=== PATIENT | female | born 1945 | race African-American/Black ===

== ENCOUNTER 2018-07-13 08:00 | Inpatient (IN) | payer OTHER ==
[2018-07-03 12:38] VITALS: BMI 27.6
--- NOTE | 2018-07-12 12:50 | HP ---
Admitting History and Physical - Admission Chief Complaint: right knee osteoarthritis x years History of Present Illness: 73 year old female presents today in regard to her right knee. Longstanding history of left knee osteoarthritis. Patient complains of pain, limited ROM, difficulty ambulating and difficulty completing activities of daily living. Patient has failed conservative treatment measures including PO medications, injections, activity modification and exercise program. At this point, patient would like to proceed with surgical intervention - right total knee arthroplasty , MAKOplasty. History Source: Patient - Past Medical History Musculoskeletal: Yes: Osteoarthritis - Past Surgical History Additional Past Surgical History: See written history and physical. - Smoking History Smoking history: Never smoked - Alcohol/Substance Use Hx Alcohol Use: No Home Medications - Allergies Allergies/Adverse Reactions: Allergies Allergy/AdvReac Type Severity Reaction Status Date / Time shellfish derived Allergy Verified 06/30/18 14:35 - Home Medications Home Medications: Ambulatory Orders Ascorbate Calcium [Vitamin C] 500 mg PO DAILY 06/30/18 Atenolol/Chlorthalidone [Atenolol-Chlorthalidone 50-25] 1 each PO DAILY Cholecalciferol (Vitamin D3) [Vitamin D3] 1,000 unit PO DAILY 06/30/18 Escitalopram Oxalate [Lexapro -] 10 mg PO DAILY 06/30/18 Gabapentin 300 mg PO HS 06/30/18 Meloxicam 15 mg PO DAILY 06/30/18 Vitamin B Complex 1 each PO DAILY 06/30/18 Review of Systems - Review of Systems Musculoskeletal: reports: Crepitus (right knee), Decreased ROM (right knee), Joint Pain (right knee), Joint Swelling (right knee) Physical Examination Constitutional: Yes: Well Nourished, No Distress Eyes: Yes: Conjunctiva Clear HENT: Yes: Atraumatic, Normocephalic Neck: Yes: Supple Cardiovascular: Yes: Regular Rate and Rhythm Respiratory: Yes: Regular Gastrointestinal: Yes: Soft ...Rectal Exam: Yes: Deferred Musculoskeletal: Yes: Joint Stiffness (right knee), Joint Swelling (right knee) Assessment/Plan 73 year old female presents today in regard to her right knee. Longstanding history of left knee osteoarthritis. Patient complains of pain, limited ROM, difficulty ambulating and difficulty completing activities of daily living. Patient has failed conservative treatment measures including PO medications, injections, activity modification and exercise program. At this point, patient would like to proceed with surgical intervention - right total knee arthroplasty , MAKOplasty. Pros, cons, risks, benefits and alternatives of a right total knee arthroplasty, MAKOplasty - were discussed with the patient at length. Patient confirms her understanding and consents to proceed with a right total knee arthroplasty, MAKOplasty.
[2018-07-13] MEDS ORDERED: GABAPENTIN 300 MG CAPSULE (FP) PO ONE (08:45)
[2018-07-13] MEDS ORDERED: TRANEXAMIC ACID 1000 MG/10 ML VIAL IVPUSH ONE (08:45)
[2018-07-13] MEDS ORDERED: CEFAZOLIN 2 GM in DEXTROSE 5%-WATER - 50 ML IVPB ONE (08:45)
[2018-07-13] MEDS ORDERED: oxyCODONE HCL 10 MG SUSTAINED ACTING TABLET PO ONE (08:45)
[2018-07-13] MEDS ORDERED: CELECOXIB 200 MG CAPSULE PO ONE (08:45)
[2018-07-13] MEDS ORDERED: PANTOPRAZOLE 40 MG TABLET (FP) PO ONE (08:46)
[2018-07-13] MEDS ORDERED: MIDAZOLAM HCL 2 MG/2 ML SINGLE DOSE VIAL ONE ×2 (11:44→13:12)
[2018-07-13] MEDS ORDERED: BUPIVACAINE LIPOSOME/PF (EXPAREL) 266 MG/20 ML VIAL ONE (11:44)
[2018-07-13] MEDS ORDERED: SODIUM CHLORIDE 0.9% P/F 10 ML VIAL IJ ONE (11:44)
[2018-07-13] MEDS ORDERED: TRANEXAMIC ACID 1000 MG/10 ML VIAL ONE ×2 (11:49→13:08)
[2018-07-13] MEDS ORDERED: VANCOMYCIN 1,000 MG VIAL (RESTRICTED TO ID ONLY) ONE (11:49)
[2018-07-13] MEDS ORDERED: ceFAZolin SODIUM 1 GM VIAL ONE ×2 (11:49→13:08)
[2018-07-13] MEDS ORDERED: ePHEDrine SULFATE 50 MG/1 ML AMPULE ONE (12:52)
[2018-07-13] MEDS ORDERED: SUCCINYLCHOLINE CHLORIDE 200 MG/10 ML VIAL ONE (12:53)
[2018-07-13] MEDS ORDERED: PHENYLEPHRINE HCL 10 MG/1 ML SINGLE DOSE VIAL ONE (12:56)
[2018-07-13] MEDS ORDERED: ONDANSETRON 4 MG/2 ML VIAL ONE (13:08)
[2018-07-13] MEDS ORDERED: DEXAMETHASONE SOD PHOSPHATE 4 MG/1 ML VIAL ONE (13:08)
[2018-07-13] MEDS ORDERED: ACETAMINOPHEN INJECTION 100 ML IVPB ONE (16:03)
[2018-07-13] MEDS ORDERED: KETOROLAC TROMETHAMINE 30 MG/1 ML VIAL ONE (16:03)
[2018-07-13] MEDS ORDERED: traMADol HCL 50 MG TABLET ONE (16:03)
[2018-07-13] MEDS ORDERED: ONDANSETRON 4 MG/2 ML VIAL IVPUSH PRN ×2 (16:15→16:28)
[2018-07-13] MEDS ORDERED: PROMETHAZINE HCL 25 MG/1 ML VIAL IVPUSH PRN (16:15)
[2018-07-13] MEDS ORDERED: oxyCODONE HCL 5 MG TABLET PO PRN (16:15)
--- NOTE | 2018-07-13 16:26 | OP ---
Operative Note - Note: Operative Date: 07/13/18 Pre-Operative Diagnosis: right knee OA Surgeon: Cosmo Hopson Waste Collection Driver: Sally Farmer Anesthesia: Spinal Estimated Blood Loss (mls): 100
[2018-07-13] MEDS ORDERED: MAGNESIUM HYDROX 2400MG/30ML ORAL SUSPENSION 30 ML CUP PO PRN (16:28)
[2018-07-13] MEDS ORDERED: MAG HYDROX/AL HYDROX/SIMETH 30 ML UNIT-DOSE CUP PO PRN (16:28)
[2018-07-13] MEDS ORDERED: LACTATED RINGERS SOLUTION 1,000 ML IV SCH (16:30)
[2018-07-13] MEDS ORDERED: ACETAMINOPHEN 1000 MG/100 ML VIAL (NON FORMULARY) IVPB ONE (16:31)
[2018-07-13] MEDS ORDERED: traMADol HCL 50 MG TABLET PO SCH (16:45)
[2018-07-13] MEDS ORDERED: KETOROLAC TROMETHAMINE 30 MG/1 ML VIAL IVPUSH SCH (16:45)
[2018-07-13] MEDS: oxyCODONE HCL 5 MG TABLET PO PRN (17:35)
--- NOTE | 2018-07-13 18:30 | OP ---
DATE OF OPERATION: 07/13/2018 PREOPERATIVE DIAGNOSIS: Right knee osteoarthritis. POSTOPERATIVE DIAGNOSIS: Right knee osteoarthritis. PROCEDURE: Right total knee replacement with Makoplasty robotic navigation. ATTENDING: Jeffery Recio M.D. ADVERTISING CAMPAIGN MANAGER: Dottie Cesar ANESTHESIA: Spinal plus sedation. ESTIMATED BLOOD LOSS: 100 mL. COMPLICATIONS: None. DISPOSITION: The patient was transferred to the PACU in stable condition. IMPLANTS USED: Marydel Triathlon size 3 femoral component and size 2 tibial component, 19-mm total stabilized polyethylene component, 29-mm patellar component. INDICATION: This is a 73-year-old female who presents to the office complaining of severe right knee pain. She was seen and examined by Dr. Recio with diagnosis of severe right knee osteoarthritis. She had a very significant valgus deformity which affected her ambulation and gait patterns and also caused multiple other joint complaints such as in her ankles. Because of the severity of her arthritis and the poor results from conservative management, she was indicated for right total knee replacement. The risks, benefits, and alternatives to this procedure were explained to the patient in great detail, and she elected to proceed with surgery. DESCRIPTION OF PROCEDURE: On the day of surgery, the patient was taken to the operating room and placed on the OR table. Spinal anesthesia was administered by the anesthesiologist. The patient was then positioned supine on the table and all bony prominences were padded. The knee was then prepped and draped in the usual sterile fashion and intravenous antibiotics were given for infection prophylaxis. A surgical time-out was then performed with the team, and the patients identity, procedure, side, availability of implants, and the administration of antibiotics was confirmed. With the knee flexed, a midline incision was made and carried down through the subcutaneous fat to the underlying retinaculum. A medial parapatellar arthrotomy was performed. This was followed by a subperiosteal dissection of the tissue off the proximal, medial tibia. A portion of fat pad was removed from under the patellar tendon, and a small portion of fat was excised off the distal supracondylar femur. Electrocautery and an [employer] bipolar sealing device were used to achieve hemostasis. The knee was then flexed further and the anterior horn of the lateral meniscus was released from the midline. Next, the anterior and posterior cruciate ligaments were transected. Grade 4 changes were noted diffusely throughout the knee. Femoral and tibial checkpoints were then placed in the appropriate location using a mallet. Two parallel bicortical self-drilling pins were placed in the tibial diaphysis after making stab incisions and bluntly dissecting down to bone. Two pins were then placed in the distal supracondylar femur. The neoSurgical navigation arrays were then attached to both the femoral and tibial pins and the lower extremity was then registered to the robotic navigation device using various joint movements, as well as inputting several dozen reference points. The knee was then taken through a full range of motion with a corrective force applied. Alignment in varus/valgus as well as flexion/extension and soft tissue balance was measured in various positions. The navigation device showed a numerical and graphic representation of the soft tissue balance. The components were repositioned virtually using the software until optimal soft tissue balance was achieved on screen. Once this was accomplished, the final plan was saved and sent to the robot. Self-retaining retractors were then placed at the joint line for exposure and protection of the collateral ligaments. The robot was brought into the sterile field and registered with the navigation device. The robotic arm with attached oscillating saw blade was then used to perform femoral and tibial bone cuts as per the saved software plan. The femoral box cut was made using the appropriately sized manual cutting guide. The knee was then irrigated. Trial components were placed and the knee was taken through a full range of motion to assess soft tissue balance and alignment. The range of motion was found to be excellent and the soft tissue balance was optimal and according to plan. The knee was then put into extension and the patella everted. The synovium around the patella was circumscribed with electrocautery. A caliper was used to measure the patellar thickness and a saw was then used to resect the patella at the chondro-osseous junction. The cut surface was then sized and drilled for the appropriate patellar button, with care taken to medialize it. A trial patella was then placed and the knee was again taken through a full range of motion. The knee was found to have both good balance and good patellar tracking. All of the components were removed except the tibial base plate. The appropriate instrumentation was used to drill and punch the proximal tibia for the keel of the final component. All bony surfaces were then cleaned with pulsatile lavage and dried. Bone cement was then prepared on the back table, and final components were cemented in place in the usual fashion. Extruded cement was removed. The polyethylene trial was placed, the knee was put into extension, and axial pressure was applied for compression while the cement hardened. The patellar button was similarly cemented into place. Once the cement had hardened, the knee was taken through a full range of motion to assess stability, balance, and patellar tracking. This was found to be optimal and the trial polyethylene was exchanged for the appropriately sized real implant. The wound was then thoroughly irrigated with normal saline. A 3-minute dilute Betadine lavage was performed. The knee was again irrigated using a pulsatile lavage device. A periarticular injection was used to locally infiltrate the capsular tissues surrounding the implant and prosthesis. Then No. 1 Polysorb and 0 VLoc 180 barbed sutures were used to close the arthrotomy. Then No. 1 Polysorb and 2-0 VLoc 90 sutures were used in the subcutaneous tissues. Then 4-0 undyed Vicryl and Dermabond skin adhesive was used to close the stab incisions made for the navigation pins. The skin was closed using both 3-0 VLoc 90 suture in a running subcuticular fashion and Dermabond skin adhesive. Once this was completed a sterile Aquacel dressing and compressive Mickey-wrap was applied. The patient was then awakened and taken to the PACU in stable condition. JEFFERY RECIO M.D. VENTURA/[id number]
[2018-07-13] MEDS: CEFAZOLIN 2 GM/D5W 2 GM/50 ML ML IVPB SCH (20:00)
[2018-07-13] MEDS: oxyCODONE HCL 10 MG SUSTAINED ACTING TABLET PO SCH (21:36)
[2018-07-13] MEDS: SENNOSIDES/DOCUSATE COMBO (SENNA PLUS) TABLET (UD) PO SCH (21:37)
[2018-07-13] MEDS: GABAPENTIN 300 MG CAPSULE (FP) PO SCH (21:37)
[2018-07-13] MEDS: ACETAMINOPHEN 325 MG TABLET (FP) PO SCH (21:37)
[2018-07-13] MEDS: CELECOXIB 200 MG CAPSULE PO SCH (21:37)
[2018-07-13] MEDS: traMADol HCL 50 MG TABLET PO SCH (21:38)
[2018-07-13] MEDS: ASCORBIC ACID 500 MG TABLET (FP) PO SCH (21:39)
[2018-07-13] MEDS: KETOROLAC TROMETHAMINE 15 MG/ML VIAL IVPUSH SCH (21:58)
[2018-07-14] MEDS ORDERED: DEXAMETHASONE SOD PHOSPHATE 10 MG/1 ML VIAL IVPB ONE
[2018-07-14] MEDS: CEFAZOLIN 2 GM/D5W 2 GM/50 ML ML IVPB SCH (01:44)
[2018-07-14] MEDS: traMADol HCL 50 MG TABLET PO SCH ×4 (04:36→21:40)
[2018-07-14] MEDS: ACETAMINOPHEN 325 MG TABLET (FP) PO SCH ×4 (04:36→21:39)
[2018-07-14] MEDS: KETOROLAC TROMETHAMINE 15 MG/ML VIAL IVPUSH SCH ×2 (04:38→10:37)
[2018-07-14] MEDS: ASPIRIN 325 MG TABLET PO SCH (08:00)
[2018-07-14 08:04] LABS: CALCIUM 8.8 mg/dl (8.5-10); POTASSIUM 3.5 mmol/L (3.5-5.1)
[2018-07-14 08:09] LABS: HEMATOCRIT 28.2 % (32.4-45.2); HEMOGLOBIN 9.4 GM/dl (10.7-15.3); MCH 28.7 pg (25.7-33.7); MCHC 33.3 g/dl (32.0-36.0); MEAN CELL VOLUME 86.1 fl (80-96); PLATELET COUNT 211 K/MM3 (134-434); RBC 3.28 M/mm3 (3.60-5.2); RDW 13.1 % (11.6-15.6); WHITE BLOOD COUNT 5.5 K/mm3 (4.0-10.8)
[2018-07-14] MEDS ORDERED: PATIENT'S OWN MEDICATION (NON-FORMULARY) (Atenolol/Chlorthalidone [Atenolol-Chlorthalidone PO SCH (10:00)
[2018-07-14] MEDS: ASCORBIC ACID 500 MG TABLET (FP) PO SCH ×2 (10:18→21:41)
[2018-07-14] MEDS: MULTIVITAMINS (DAILY MVI) TABLET (FP) PO SCH (10:18)
[2018-07-14] MEDS: CELECOXIB 200 MG CAPSULE PO SCH ×2 (10:18→21:40)
[2018-07-14] MEDS: SENNOSIDES/DOCUSATE COMBO (SENNA PLUS) TABLET (UD) PO SCH ×2 (10:18→21:41)
[2018-07-14] MEDS: ATENOLOL 50 MG TABLET (FP) PO SCH (10:18)
[2018-07-14] MEDS: GABAPENTIN 300 MG CAPSULE (FP) PO SCH ×2 (10:20→21:40)
[2018-07-14] MEDS: PANTOPRAZOLE 40 MG TABLET (FP) PO SCH (10:20)
[2018-07-14] MEDS: ESCITALOPRAM OXALATE 10 MG TABLET (FP) PO SCH ×2 (10:20→10:37)
[2018-07-14] MEDS: CHLORTHALIDONE 25 MG TABLET PO SCH (10:23)
[2018-07-14] MEDS: oxyCODONE HCL 10 MG SUSTAINED ACTING TABLET PO SCH ×2 (10:37→21:40)
--- NOTE | 2018-07-14 11:35 | SURG ---
Surgery Director Of Restaurant Note Director Of Restaurant: Sally Farmer PA-C (Suzy) Date of Service: 07/13/18 Diagnosis: Right knee osteoarthritis Procedure: Right knee replacement ([facility]) I was present for the entirety of the operative procedure. For further detail, please refer to operative report. Visit type - Case Type Case Type: Scheduled - Emergency Emergency Visit: No - New patient This patient is new to me today: Yes Date on this admission: 07/14/18 - Critical Care Critical Care patient: No
[2018-07-14] MEDS ORDERED: ESCITALOPRAM OXALATE 10 MG TABLET (FP) PO SCH (22:00)
[2018-07-15] MEDS: ACETAMINOPHEN 325 MG TABLET (FP) PO SCH ×3 (06:01→09:59)
[2018-07-15] MEDS: traMADol HCL 50 MG TABLET PO SCH ×2 (06:01→10:00)
[2018-07-15] MEDS: oxyCODONE HCL 5 MG TABLET PO PRN (06:33)
[2018-07-15 08:38] LABS: HEMATOCRIT 28.8 % (32.4-45.2); HEMOGLOBIN 9.1 GM/dl (10.7-15.3); MCH 27.4 pg (25.7-33.7); MCHC 31.6 g/dl (32.0-36.0); MEAN CELL VOLUME 86.7 fl (80-96); MEAN PLT VOLUME 8.9 fl (7.5-11.1); PLATELET COUNT 217 K/MM3 (134-434); RBC 3.32 M/mm3 (3.60-5.2); RDW 13.6 % (11.6-15.6); WHITE BLOOD COUNT 6.8 K/mm3 (4.0-10.8)
[2018-07-15] MEDS: ASPIRIN 325 MG TABLET PO SCH (09:01)
[2018-07-15] MEDS: CELECOXIB 200 MG CAPSULE PO SCH (10:02)
[2018-07-15] MEDS: GABAPENTIN 300 MG CAPSULE (FP) PO SCH (10:03)
[2018-07-15] MEDS: SENNOSIDES/DOCUSATE COMBO (SENNA PLUS) TABLET (UD) PO SCH (10:04)
[2018-07-15] MEDS: oxyCODONE HCL 10 MG SUSTAINED ACTING TABLET PO SCH (10:04)
[2018-07-15] MEDS: CHLORTHALIDONE 25 MG TABLET PO SCH (10:04)
[2018-07-15] MEDS: ATENOLOL 50 MG TABLET (FP) PO SCH (10:05)
[2018-07-15] MEDS: MULTIVITAMINS (DAILY MVI) TABLET (FP) PO SCH (10:05)
[2018-07-15] MEDS: PANTOPRAZOLE 40 MG TABLET (FP) PO SCH (10:05)
[2018-07-15] MEDS: ASCORBIC ACID 500 MG TABLET (FP) PO SCH (10:05)
--- NOTE | 2018-07-15 10:15 | DS ---
Physical Examination Vital Signs: Vital Signs Temperature 97.8 F 07/15/18 07:00 Pulse Rate 50 L 07/15/18 07:00 Respiratory Rate 18 07/15/18 07:00 Blood Pressure 117/55 L 07/15/18 07:00 O2 Sat by Pulse Oximetry (%) 93 L 07/15/18 07:00 Labs: CBC, BMP 07/15/18 07:30 07/14/18 07:26 Discharge Summary Reason For Visit: RIGHT KNEE OSTEOARTHRITIS Current Active Problems Osteoarthritis of right knee (Acute) Procedures: Principal: Right TKA Hospital Course: Admitted for elective surgery. Procedure performed without complications. Pt received postoperative antibiotic prophylaxis and DVT ppx. Ambulated with physical therapy. Stable for discharge home with outpatient followup. Condition: Stable - Instructions Diet, Activity, Other Instructions: Dr. Hopson - Knee Replacement Instructions Keep the Aquacel dressing on until removed by Dr. Hopson in 10-14 days - it is antibacterial and waterproof and you can shower with it on. Call the office for a follow-up appointment with Dr. Hopson in 10-14 days. [phone] Take one Aspirin 325mg daily for 6 weeks to prevent blood clots in your legs. Take one Pantoprazole 40mg daily for 6 weeks to protect against heartburn and ulcers. Take Cephalexin (antibiotic) 3x/day for 10 days to help prevent skin infection. Take Celebrex 200mg daily for 30 days to reduce swelling and inflammation. Take a multivitamin, stool softener, and extra Vitamin C supplement daily. For pain: *Mild pain (1-3/10): Take 1 Tramadol tablet every 4 hours as needed. Moderate pain (4-6/10): Take 1 Tramadol tablet and 1 Percocet tablet every 4 hours as needed. Severe pain (7-10/10): Take 1 Tramadol tablet and 2 Percocet tablets every 4 hours as needed. Activity: You can put as much weight on the operative leg as you want. Always use a walker or cane for balance and to prevent falls. Expect to see swelling/bruising from the operative site all the way down to your toes. Wear the compression stocking on the operative side during the day to minimize how much swelling there is in your foot/ankle. Don't wear the stocking at night. You don't have to wear a stocking on the other side. Disposition: [facility] - Home Medications Comprehensive Discharge Medication List: Ambulatory Orders Atenolol/Chlorthalidone [Atenolol-Chlorthalidone 50-25] 1 each PO DAILY Cholecalciferol (Vitamin D3) [Vitamin D3] 1,000 unit PO DAILY 06/30/18 Escitalopram Oxalate [Lexapro -] 10 mg PO DAILY 06/30/18 Gabapentin 300 mg PO HS 06/30/18 Vitamin B Complex 1 each PO DAILY 06/30/18 Ascorbic Acid [Vitamin C -] 500 mg PO BID tablet 07/15/18 Aspirin [ASA -] 325 mg PO DAILY@0800 tablet 07/15/18 Celecoxib [CeleBREX -] 200 mg PO DAILY #30 capsule 07/15/18 Cephalexin Monohydrate [Keflex -] 500 mg PO TID #30 capsule 07/15/18 Multivitamins [Multivit ([facility] Formulary)] 1 tab PO DAILY tab 07/15/18 Oxycodone HCl/Acetaminophen [Percocet 5-325 mg Tablet] 1 - 2 tab PO Q4H PRN #60 tablet MDD 10 07/15/18 Pantoprazole Sodium [Protonix -] 40 mg PO DAILY #40 tablet.ec 07/15/18 Sennosides/Docusate Sodium [Pericolace -] 2 tablet PO BID tablet 07/15/18 traMADol HCL [Ultram -] 50 mg PO Q4H PRN #42 tablet MDD 6 07/15/18
[2018-07-15 10:16] VITALS: BP 116/59; PULSE 62; TEMP 98
--- NOTE | 2018-07-19 13:58 | PATH ---
Surgical Pathology Report Patient Name: NADYA SALINAS Med. Rec. #: [id number] /Age/Gender: 1945 (Age: 73) / F Account: [id number] Location: [facility] MED-SURG Taken: 07/13/2018 Received: 07/13/2018 Reported: 07/19/2018 Physicians: Cosmo Hopson M.D. Specimen(s) Received RIGHT KNEE BONES Clinical History Right knee osteoarthritis Final Diagnosis KNEE BONES, RIGHT, TOTAL KNEE REPLACEMENT: DEGENERATIVE JOINT DISEASE. Electronically Signed Brittany Hess M.D. Gross Description Received in formalin labeled "right knee bones" is a 9 x 10 x 4 cm aggregate of multiple portions of bone and soft tissue. The tibial plateau measures 7 x 6 x 2.5 cm. There are focal areas of eburnation identified. The articular surface the is gallardo-yellow and diffusely granular. The underlying trabecular bone is yellow and hard. Scrap Breaker sections submitted in one cassette, following decalcification. ORTIZ/07/14/2018 felipe/07/14/2018
== END 2018-07-15 11:55 | DRG 470 ==
LOC: FM/S 09:20
PROVIDERS: ADMIT Student in an Organized Health Care Education/Training Program; ATTEND Student in an Organized Health Care Education/Training Program
PROC: 8E0Y0CZ Robotic Assisted Procedure of Lower Extremity, Open Approach (ICD-10-PCS; 2018-07-13)
PROC: 0SRC0J9 Replacement of Right Knee Joint with Synthetic Substitute, Cemented, Open Approach (ICD-10-PCS; principal; 2018-07-13 13:20)
DX: M17.11 Unilateral primary osteoarthritis, right knee (principal)
CPT/HCPCS: 36415; 73560-TC-RT-FY; 80048; 85027; 88304-TC; 88311-TC; 94760; 97116-GP; 97163-GP; J0131; J1100

== ENCOUNTER 2018-08-13 16:30 | Inpatient (IN) | payer OTHER ==
[2018-08-13 16:54] VITALS: BMI 29.2
--- NOTE | 2018-08-13 16:54 | PDOC ---
History of Present Illness - General Chief Complaint: Wound Stated Complaint: WOUND TO RIGHT KNEE SURGICAL SITE Time Seen by Provider: 08/13/18 16:38 - History of Present Illness Initial Comments: 08/13/18 17:26 73-year-old female with a history of hypertension, recent right total knee replacement on July 13, [address] Wilburn presents to the emergency department as a transfer from [place] emergency department for wound dehiscence. Patient reports accidentally twisting her knee 3 days ago while at physical therapy. This morning, as she got out of bed, she felt sudden pain in her R knee. When she looked down, she noticed the wound had opened and blood was coming out. She called 911 and was taken to [place] because it's closer to her home. At [place], she was given PO Clindamycin and the wound was washed out and packed with Betadine. Upon arrival to our emergency department the patient denies any other symptoms of fevers, chills, chest pain, shortness of breath, abdominal pain, nausea, vomiting, diarrhea, headache, dizziness, focal weakness or numbness. Per Dr. Hopson, he will take pt to the OR in the morning for a washout. Past History - Past Medical History Allergies/Adverse Reactions: Allergies Allergy/AdvReac Type Severity Reaction Status Date / Time cephalexin [From Keflex] Allergy Intermediate Rash Verified 08/13/18 17:24 shellfish derived Allergy Verified 08/13/18 16:49 No Known Drug Allergies AdvReac Unknown Verified 08/13/18 16:49 Home Medications: Ambulatory Orders Atenolol/Chlorthalidone [Atenolol-Chlorthalidone 50-25] 1 each PO DAILY Cholecalciferol (Vitamin D3) [Vitamin D3] 1,000 unit PO DAILY 06/30/18 Escitalopram Oxalate [Lexapro -] 10 mg PO DAILY 06/30/18 Vitamin B Complex 1 each PO DAILY 06/30/18 Ascorbic Acid [Vitamin C -] 500 mg PO BID tablet 07/15/18 Aspirin [ASA -] 325 mg PO DAILY@0800 tablet 07/15/18 Celecoxib [CeleBREX -] 200 mg PO DAILY #30 capsule 07/15/18 Oxycodone HCl/Acetaminophen [Percocet 5-325 mg Tablet] 1 - 2 tab PO Q4H PRN #60 tablet MDD 10 07/15/18 Pantoprazole Sodium [Protonix -] 40 mg PO DAILY #40 tablet.ec 07/15/18 Sennosides/Docusate Sodium [Pericolace -] 2 tablet PO BID tablet 07/15/18 traMADol HCL [Ultram -] 50 mg PO Q4H PRN #42 tablet MDD 6 07/15/18 Clindamycin [Cleocin -] 2 cap PO ONCE 08/13/18 Anemia: No Asthma: No Cancer: No Cardiac Disorders: No CVA: No COPD: No CHF: No Dementia: No Diabetes: No GI Disorders: No Disorders: No HTN: Yes Hypercholesterolemia: No Liver Disease: No Seizures: No Thyroid Disease: No - Surgical History Abdominal Surgery: No Appendectomy: No Cardiac Surgery: No Cholecystectomy: No Lung Surgery: No Neurologic Surgery: No Orthopedic Surgery: Yes (Bilateral Bunionectomy) - Suicide/Smoking/Psychosocial Hx Smoking History: Never smoked Hx Alcohol Use: No Drug/Substance Use Hx: No Substance Use Type: None Hx Substance Use Treatment: No Review of Systems - Review of Systems Comments:: 08/13/18 17:29 GENERAL/CONSTITUTIONAL: No fever or chills. No weakness. HEAD, EYES, EARS, NOSE AND THROAT: No change in vision. No ear pain or discharge. No sore throat. GASTROINTESTINAL: No nausea, vomiting, diarrhea or constipation. GENITOURINARY: No dysuria, frequency, or change in urination. CARDIOVASCULAR: No chest pain or shortness of breath. RESPIRATORY: No cough, wheezing, or hemoptysis. MUSCULOSKELETAL: No joint or muscle swelling or pain. No neck or back pain. SKIN: +wound dehiscence NEUROLOGIC: No headache, vertigo, loss of consciousness, or change in strength/ sensation. ENDOCRINE: No increased thirst. No abnormal weight change. HEMATOLOGIC/LYMPHATIC: No anemia, easy bleeding, or history of blood clots. ALLERGIC/IMMUNOLOGIC: No hives or skin allergy. *Physical Exam - Vital Signs Last Vital Signs Temp Pulse Resp BP Pulse Ox 98 F 72 18 127/43 L 97 08/13/18 16:35 08/13/18 16:35 08/13/18 16:35 08/13/18 16:35 08/13/18 16:35 - Physical Exam Comments: 08/13/18 17:41 GENERAL: Awake, alert, and fully oriented, in no acute distress. Non toxic HEAD: No signs of trauma EYES: EOMI, sclera anicteric, conjunctiva clear ENT: Oropharynx clear without exudates. Moist mucosa NECK: Normal ROM, supple, no lymphadenopathy, JVD, or masses LUNGS: Breath sounds equal, clear to auscultation bilaterally. No wheezes, and no crackles HEART: Regular rate and rhythm, normal S1 and S2, no murmurs, rubs or gallops ABDOMEN: Soft, nontender, normoactive bowel sounds. No guarding, no rebound. No masses EXTREMITIES: Pt does not want us to take down R knee dressing. Pt has pictures of wound this morning on her phone consistent with wound dehiscence. [facility] NEUROLOGICAL: Normal speech, cranial nerves intact, equal strength and sensation b/l/ SKIN: As noted above ED Treatment Course - LABORATORY CBC & Chemistry Diagram: 08/13/18 17:25 08/13/18 16:54 Medical Decision Making - Medical Decision Making 08/13/18 17:45 73yo F presents to the ED for admission for wound wash out with Dr. Hopson tomorrow in the morning Orders have been placed by Dr. Hopson Pt declines pain medications Labs pending Case discussed with Dr. Patel who will admit pt Case discussed in detail with admitting physician including history, physical exam and ancillary studies. Admitting physician has assumed care for the patient, will follow all pending diagnostics and will complete the evaluation and treatment. *DC/Admit/Observation/Transfer Diagnosis at time of Disposition: Wound dehiscence - Discharge Dispostion Condition at time of disposition: Fair Decision to Admit order Date/Time: Decision to Admit Order Category Date Time Status Decision to Admit to Hospital Routine Admission 08/13/18 16:51 Active - Referrals - Patient Instructions - Post Discharge Activity - Attestations Physician Attestion: 08/13/18 18:28 I, Dr. Mariaelena Box MD, attest that this document has been prepared under my direction and personally reviewed by me in its entirety. I further attest, that it accurately reflects all work, treatment, procedures and medical decision -making performed by me.
[2018-08-13] MEDS ORDERED: CELECOXIB 200 MG CAPSULE PO ONE (17:27)
[2018-08-13] MEDS ORDERED: MAGNESIUM HYDROX 2400MG/30ML ORAL SUSPENSION 30 ML CUP PO PRN (17:29)
[2018-08-13] MEDS ORDERED: ONDANSETRON 4 MG/2 ML VIAL IVPUSH PRN (17:29)
[2018-08-13] MEDS ORDERED: MAG HYDROX/AL HYDROX/SIMETH 30 ML UNIT-DOSE CUP PO PRN (17:29)
[2018-08-13] MEDS ORDERED: LACTATED RINGERS SOLUTION 1,000 ML IV SCH (17:30)
[2018-08-13] MEDS ORDERED: oxyCODONE HCL 5 MG TABLET PO PRN (17:31)
[2018-08-13 18:29] LABS: BASO % 1.3 % (0-2.0); EOS % 13.7 % (0-4.5); HEMATOCRIT 29.7 % (32.4-45.2); HEMOGLOBIN 9.6 GM/dl (10.7-15.3); LYMPH % 28.1 % (8-40); MCH 27.6 pg (25.7-33.7); MCHC 32.4 g/dl (32.0-36.0); MEAN CELL VOLUME 85.3 fl (80-96); MEAN PLT VOLUME 8.4 fl (7.5-11.1); MONO % 11.1 % (3.8-10.2); NEUT % 45.8 % (42.8-82.8); PLATELET COUNT 378 K/MM3 (134-434); RBC 3.48 M/mm3 (3.60-5.2); RDW 14.6 % (11.6-15.6); WHITE BLOOD COUNT 5.3 K/mm3 (4.0-10.8)
[2018-08-13 18:31] LABS: ALBUMIN 3.5 g/dl (3.4-5.0); BILIRUBIN,TOTAL 0.5 mg/dl (0.2-1); CALCIUM 9.4 mg/dl (8.5-10); CREATININE 1.4 mg/dl (0.55-1.3); POTASSIUM 4.3 mmol/L (3.5-5.1); TOT PROT 7.3 g/dl (6.4-8.2)
[2018-08-13] MEDS: traMADol HCL 50 MG TABLET PO SCH (19:24)
[2018-08-13] MEDS: CEFAZOLIN 2 GM/D5W 2 GM/50 ML ML IVPB SCH (19:24)
[2018-08-13] MEDS: ASCORBIC ACID 500 MG TABLET (FP) PO SCH (21:18)
[2018-08-13] MEDS: SENNOSIDES/DOCUSATE COMBO (SENNA PLUS) TABLET (UD) PO SCH (21:18)
[2018-08-13] MEDS: GABAPENTIN 300 MG CAPSULE (FP) PO SCH (21:18)
[2018-08-13] MEDS: oxyCODONE HCL 5 MG TABLET PO PRN (21:24)
[2018-08-14] MEDS: traMADol HCL 50 MG TABLET PO SCH ×3 (00:03→13:16)
[2018-08-14] MEDS: CEFAZOLIN 2 GM/D5W 2 GM/50 ML ML IVPB SCH ×2 (01:12→10:00)
[2018-08-14] MEDS: PANTOPRAZOLE 40 MG TABLET (FP) PO SCH (09:58)
[2018-08-14] MEDS: SENNOSIDES/DOCUSATE COMBO (SENNA PLUS) TABLET (UD) PO SCH ×2 (09:58→22:31)
[2018-08-14] MEDS: GABAPENTIN 300 MG CAPSULE (FP) PO SCH ×2 (09:58→22:33)
[2018-08-14] MEDS: ATENOLOL 50 MG TABLET (FP) PO SCH (09:59)
[2018-08-14] MEDS: MULTIVITAMINS (DAILY MVI) TABLET (FP) PO SCH (09:59)
[2018-08-14] MEDS: ESCITALOPRAM OXALATE 10 MG TABLET (FP) PO SCH (09:59)
[2018-08-14] MEDS: ASCORBIC ACID 500 MG TABLET (FP) PO SCH ×2 (09:59→22:31)
[2018-08-14] MEDS: CHLORTHALIDONE 25 MG TABLET PO SCH (10:00)
[2018-08-14] MEDS ORDERED: PATIENT'S OWN MEDICATION (NON-FORMULARY) (Atenolol/Chlorthalidone [Atenolol-Chlorthalidone PO SCH (10:00)
[2018-08-14] MEDS ORDERED: KETOROLAC TROMETHAMINE 30 MG/1 ML VIAL ONE (14:19)
[2018-08-14] MEDS ORDERED: LIDOCAINE HCL/PF 2% SDV 5ML VIAL ONE (14:19)
[2018-08-14] MEDS ORDERED: ONDANSETRON 4 MG/2 ML VIAL ONE (14:19)
[2018-08-14] MEDS ORDERED: PROPOFOL 20 ML ONE (14:20)
[2018-08-14] MEDS ORDERED: SUCCINYLCHOLINE CHLORIDE 200 MG/10 ML VIAL ONE (14:25)
[2018-08-14] MEDS ORDERED: ceFAZolin SODIUM 1 GM VIAL ONE ×2 (16:15→17:46)
[2018-08-14] MEDS ORDERED: VANCOMYCIN 1,000 MG VIAL (RESTRICTED TO ID ONLY) ONE ×2 (16:15→17:54)
--- NOTE | 2018-08-14 16:42 | HP ---
Admitting History and Physical - Past Medical History ...: No Musculoskeletal: Yes: Osteoarthritis - Smoking History Smoking history: Never smoked Have you smoked in the past 12 months: No - Alcohol/Substance Use Hx Alcohol Use: No Home Medications - Allergies Allergies/Adverse Reactions: Allergies Allergy/AdvReac Type Severity Reaction Status Date / Time shellfish derived Allergy Verified 08/13/18 16:49 No Known Drug Allergies AdvReac Unknown Verified 08/13/18 16:49 Aquacell-AG Dressing Allergy Intermediate Rash Uncoded 08/14/18 08:34 - Home Medications Home Medications: Ambulatory Orders Atenolol/Chlorthalidone [Atenolol-Chlorthalidone 50-25] 1 each PO DAILY Cholecalciferol (Vitamin D3) [Vitamin D3] 1,000 unit PO DAILY 06/30/18 Escitalopram Oxalate [Lexapro -] 10 mg PO DAILY 06/30/18 Vitamin B Complex 1 each PO DAILY 06/30/18 Ascorbic Acid [Vitamin C -] 500 mg PO BID tablet 07/15/18 Aspirin [ASA -] 325 mg PO DAILY@0800 tablet 07/15/18 Celecoxib [CeleBREX -] 200 mg PO DAILY #30 capsule 07/15/18 Oxycodone HCl/Acetaminophen [Percocet 5-325 mg Tablet] 1 - 2 tab PO Q4H PRN #60 tablet MDD 10 07/15/18 Pantoprazole Sodium [Protonix -] 40 mg PO DAILY #40 tablet.ec 07/15/18 Sennosides/Docusate Sodium [Pericolace -] 2 tablet PO BID tablet 07/15/18 traMADol HCL [Ultram -] 50 mg PO Q4H PRN #42 tablet MDD 6 07/15/18 Clindamycin [Cleocin -] 2 cap PO ONCE 08/13/18 Physical Examination Vital Signs: Vital Signs Temperature 98.3 F 08/14/18 13:00 Pulse Rate 52 L 08/14/18 13:00 Respiratory Rate 18 08/14/18 13:00 Blood Pressure 126/50 L 08/14/18 13:00 O2 Sat by Pulse Oximetry (%) 97 08/14/18 13:00 Labs: CBC, BMP 08/13/18 17:55 08/13/18 17:55
[2018-08-14] MEDS ORDERED: MIDAZOLAM HCL 2 MG/2 ML SINGLE DOSE VIAL ONE ×2 (16:46→17:49)
[2018-08-14] MEDS ORDERED: TRANEXAMIC ACID 1000 MG/10 ML VIAL ONE (19:09)
[2018-08-14] MEDS ORDERED: TRANEXAMIC ACID 1000 MG/10 ML VIAL IVPB ONE (19:10)
[2018-08-14] MEDS ORDERED: ACETAMINOPHEN 1000 MG/100 ML VIAL (NON FORMULARY) IVPB ONE (20:09)
[2018-08-14] MEDS ORDERED: LACTATED RINGERS SOLUTION 1,000 ML IV SCH (20:30)
--- NOTE | 2018-08-14 20:44 | OP ---
Operative Note - Note: Operative Date: 08/14/18 Pre-Operative Diagnosis: right TKA wound dehiscence Operation: right TKA irrigation and debridement, polyethylene exchange, arthrotomy and skin closure Findings: see dictation Post-Operative Diagnosis: Other (right TKA deep wound dehiscence / capsular dehiscence) Surgeon: Cosmo Hopson Lacemaker: Hanna Milligan Anesthesia: Spinal Estimated Blood Loss (mls): 150
[2018-08-14] MEDS ORDERED: APIXABAN 2.5 MG TABLET PO SCH (22:00)
[2018-08-14] MEDS: oxyCODONE HCL 10 MG SUSTAINED ACTING TABLET PO SCH (22:32)
[2018-08-15] MEDS: SENNOSIDES/DOCUSATE COMBO (SENNA PLUS) TABLET (UD) PO SCH ×5 (00:21→22:04)
[2018-08-15] MEDS: ASCORBIC ACID 500 MG TABLET (FP) PO SCH ×5 (00:21→22:04)
[2018-08-15] MEDS: CEFAZOLIN 2 GM/D5W 2 GM/50 ML ML IVPB SCH ×3 (01:04→18:22)
[2018-08-15] MEDS: traMADol HCL 50 MG TABLET PO SCH ×4 (01:05→18:15)
[2018-08-15] MEDS: oxyCODONE HCL 5 MG TABLET PO PRN ×4 (04:45→17:23)
[2018-08-15 08:12] LABS: HEMATOCRIT 24.5 % (32.4-45.2); HEMOGLOBIN 7.7 GM/dl (10.7-15.3); MCH 27.1 pg (25.7-33.7); MCHC 31.4 g/dl (32.0-36.0); MEAN CELL VOLUME 86.2 fl (80-96); MEAN PLT VOLUME 8.1 fl (7.5-11.1); PLATELET COUNT 315 K/MM3 (134-434); RBC 2.85 M/mm3 (3.60-5.2); RDW 15.1 % (11.6-15.6)
--- NOTE | 2018-08-15 08:43 | CONSULT ---
Consultation: REQUESTING PROVIDER: Dr. Cosmo Hopson CONSULT REQUEST: We have been asked to medically evaluate this patient during the post-operative period. HISTORY OF PRESENT ILLNESS: 73 year-old female with a [facility] signficant for HTN, SLE-type symptoms, depression/ anxiety, and right knee arthritis s/p WILBUR right knee replacement on 07/13/18. Readmitted on 08/13/18 for deep wound and capsular dehiscence. Taken to OR on for irrigation, debridement, polyethylene exchange, arthrotomy and skin closure. REVIEW OF SYSTEMS: CONSTITUTIONAL: Absent: fever, chills, diaphoresis, generalized weakness, malaise, loss of appetite, weight change HEENT: Absent: rhinorrhea, nasal congestion, throat pain, throat swelling, difficulty swallowing, mouth swelling, ear pain, eye pain, visual changes CARDIOVASCULAR: Absent: chest pain, syncope, palpitations, irregular heart rate, lightheadedness , peripheral edema RESPIRATORY: Absent: cough, shortness of breath, dyspnea with exertion, orthopnea, wheezing, stridor, hemoptysis GASTROINTESTINAL: Absent: abdominal pain, abdominal distension, nausea, vomiting, diarrhea, constipation, melena, hematochezia GENITOURINARY: Absent: dysuria, frequency, urgency, hesitancy, hematuria, flank pain, genital pain MUSCULOSKELETAL: +right knee pain Absent: myalgia, arthralgia, joint swelling, back pain, neck pain SKIN: Absent: rash, itching, pallor HEMATOLOGIC/IMMUNOLOGIC: Absent: easy bleeding, easy bruising, lymphadenopathy, frequent infections ENDOCRINE: Absent: unexplained weight gain, unexplained weight loss, heat intolerance, cold intolerance NEUROLOGIC: Absent: headache, focal weakness or paresthesias, dizziness, unsteady gait, seizure, mental status changes, bladder or bowel incontinence PSYCHIATRIC: Absent: anxiety, depression, suicidal or homicidal ideation, hallucinations. PHYSICAL EXAMINATION Vital Signs - 24 hr 08/15/18 08/15/18 08/15/18 01:00 01:16 05:00 Temperature 97.6 F 98.5 F Pulse Rate 62 63 Respiratory 19 20 Rate Blood Pressure 128/46 L 120/49 L O2 Sat by Pulse 100 Oximetry (%) 08/15/18 06:48 Temperature Pulse Rate Respiratory Rate Blood Pressure O2 Sat by Pulse 100 Oximetry (%) GENERAL: Awake, alert, and fully oriented, in no acute distress. LUNGS: Breath sounds equal, clear to auscultation bilaterally. No wheezes, and no crackles. No accessory muscle use. HEART: Regular rate and rhythm, normal S1 and S2 ABDOMEN: Soft, nontender, not distended MUSCULOSKELETAL: Normal range of motion at all joints. No bony deformities or tenderness. No CVA tenderness. UPPER EXTREMITIES: 2+ pulses, warm, well-perfused. No cyanosis. No clubbing. Cap refill <2 seconds. No peripheral edema. RIGHT LOWER EXTREMITY: 2+ DP pulse, foot is warm, sensory intact, leg immobilizer in place, dressings c/d/i, wound not visualized NEUROLOGICAL: Cranial nerves II-XII intact. Normal speech. Laboratory Results - last 24 hr 08/15/18 07:29 WBC 5.0 RBC 2.85 L Hgb 7.7 L Hct 24.5 L D MCV 86.2 MCH 27.1 MCHC 31.4 L RDW 15.1 Plt Count 315 MPV 8.1 Active Medications Generic Name Dose Route Start Last Admin Trade Name Freq PRN Reason Stop Dose Admin Al Hydroxide/Mg Hydroxide 30 ml 08/13/18 17:29 Mylanta Oral Suspension - PO Q4H PRN DYSPEPSIA Apixaban 2.5 mg 08/15/18 10:00 Eliquis - PO BID VLADIMIR Ascorbic Acid 500 mg 08/13/18 22:00 08/14/18 22:31 Vitamin C - PO 500 mg BID VLADIMIR Administration Ascorbic Acid 500 mg 08/14/18 22:00 08/15/18 00:21 Vitamin C - PO Not Given BID VLADIMIR Atenolol 50 mg 08/14/18 10:00 08/14/18 09:59 Tenormin - PO 50 mg DAILY VLADIMIR Administration Chlorthalidone 25 mg 08/14/18 10:00 08/14/18 10:00 Hygroton - PO 25 mg DAILY VLADIMIR Administration Cholecalciferol 1,000 unit 08/15/18 10:00 Vitamin D3 - PO DAILY VLADIMIR Escitalopram Oxalate 10 mg 08/14/18 10:00 08/14/18 09:59 Lexapro - PO 10 mg DAILY VLADIMIR Administration Gabapentin 300 mg 08/13/18 22:00 08/14/18 22:33 Neurontin - PO 08/16/18 21:59 300 mg BID VLADIMIR Administration Cefazolin Sodium/Dextrose 2 gm in 50 mls @ 200 mls/hr 08/15/18 02:00 01:04 Ancef 2 Gm Premixed Ivpb - IVPB 08/15/18 18:14 200 mls/hr Q8H-IV VLADIMIR Administration Magnesium Hydroxide 30 ml 08/13/18 17:29 Milk Of Magnesia - PO PRN PRN CONSTIPATION Multivit/Ca Carb/B Cmplx/FA/Prenat 1 tablet 08/15/18 10:00 Nephro-Renato - PO DAILY VLADIMIR Multivitamins/Minerals/Vitamin C 1 tab 08/14/18 10:00 08/14/18 09:59 Tab-A-Vit - PO 1 tab DAILY VLADIMIR Administration Ondansetron HCl 4 mg 08/13/18 17:29 Zofran Injection IVPUSH Q6H PRN NAUSEA Oxycodone HCl 5 mg 08/13/18 17:31 Roxicodone - PO 08/16/18 17:32 Q3H PRN PAIN LEVEL 1-5 Oxycodone HCl 10 mg 08/13/18 17:32 08/15/18 07:48 Roxicodone - PO 08/16/18 17:32 10 mg Q3H PRN Administration PAIN LEVEL 6-10 Oxycodone HCl 10 mg 08/14/18 22:00 08/14/18 22:32 Oxycontin - PO 10 mg BID VLADIMIR Administration Pantoprazole Sodium 40 mg 08/14/18 10:00 08/14/18 09:58 Protonix - PO 40 mg DAILY VLADIMIR Administration Pantoprazole Sodium 40 mg 08/15/18 10:00 Protonix - PO DAILY VLADIMIR Senna/Docusate Sodium 2 tablet 08/13/18 22:00 08/14/18 22:31 Pericolace - PO 2 tablet BID VLADIMIR Administration Senna/Docusate Sodium 2 tablet 08/14/18 22:00 08/15/18 00:21 Pericolace - PO Not Given BID VLADIMIR Tramadol HCl 50 mg 08/13/18 18:00 08/15/18 07:18 Ultram - PO 50 mg Q6HPO VLADIMIR Administration ASSESSMENT/PLAN: 73 year-old female with a [facility] signficant for HTN, SLE-type symptoms, depression/ anxiety, and right knee arthritis s/p WILBUR right knee replacement on 07/13/18. Readmitted on 08/13/18 for deep wound and capsular dehiscence. Taken to OR on for irrigation, debridement, polyethylene exchange, arthrotomy and skin closure. Right knee replacement deep wound dehiscence s/p I&D --post-procedure day #1 --afebrile, no leukocytosis --perioperative antibiotics per surgery --pain management per surgery --protonix --bowel regimen --incentive spirometry --Eliquis 2.5 mg daily x 2 weeks for DVT prophylaxis Delayed surgical wound healing --low albumin, prealbumin --start Prosource BID, Ensure --nutrition consult pending to evaluate for protein malnutrition Hypertension --BP stable --continue atenolol, chlorthalidone Elevated Creatinine --Cr 1.4 on admission, today 1.1 WNL SLE-type symptoms --per review of pre-op H&P, previously treated with Plaquenil, no longer on meds Depression/anxiety --continue Lexapro Hypomagnesemia --replete FEN Fluids: PO intake adequate Electrolytes: replete as indicated Nutrition: regular diet DVT prophylaxis: on Eliquis Physical therapy Dispo: We will continue to follow the patient. Thank you for this consultative opportunity. Visit type - Emergency Visit Emergency Visit: Yes ED Registration Date: 08/13/18 Care time: The patient presented to the Emergency Department on the above date and was hospitalized for further evaluation of their emergent condition. - New Patient This patient is new to me today: Yes Date on this admission: 08/15/18 - Critical Care Critical Care patient: No
[2018-08-15 09:23] LABS: ALBUMIN 2.7 g/dl (3.4-5.0); CALCIUM 8.9 mg/dl (8.5-10); CREATININE 1.1 mg/dl (0.55-1.3); MAGNESIUM 1.4 mg/dL (1.8-2.4); POTASSIUM 4.4 mmol/L (3.5-5.1)
[2018-08-15] MEDS: ESCITALOPRAM OXALATE 10 MG TABLET (FP) PO SCH (09:45)
[2018-08-15] MEDS: CHLORTHALIDONE 25 MG TABLET PO SCH (09:45)
[2018-08-15] MEDS: GABAPENTIN 300 MG CAPSULE (FP) PO SCH ×2 (09:46→22:02)
[2018-08-15] MEDS: oxyCODONE HCL 10 MG SUSTAINED ACTING TABLET PO SCH ×2 (09:46→22:03)
[2018-08-15] MEDS: MULTIVITAMINS (DAILY MVI) TABLET (FP) PO SCH (09:47)
[2018-08-15] MEDS: PANTOPRAZOLE 40 MG TABLET (FP) PO SCH (09:47)
[2018-08-15] MEDS: CHOLECALCIFEROL (VIT D3) 1,000 UNIT (25 MCG) TABLET PO SCH (09:48)
[2018-08-15] MEDS ORDERED: PATIENT'S OWN MEDICATION (NON-FORMULARY) (Vitamin B Complex [Vitamin B Complex] 1 EACH) PO SCH (10:00)
[2018-08-15] MEDS ORDERED: PANTOPRAZOLE 40 MG TABLET (FP) PO SCH (10:00)
[2018-08-15] MEDS ORDERED: MAGNESIUM SULF 50% (8.12 MEQ/2 ML-1 GM VIAL) IVPB ONE (10:12)
[2018-08-15] MEDS: ATENOLOL 50 MG TABLET (FP) PO SCH (10:25)
[2018-08-15] MEDS: VITAMIN B COMP W-C 1 EA TABLET PO SCH (10:40)
[2018-08-15] MEDS: APIXABAN 2.5 MG TABLET PO SCH ×2 (12:45→22:02)
--- NOTE | 2018-08-15 15:58 | PN ---
Progress Note (short form) - Note Progress Note: S: Pt. resting in bed. No complaints. O: VAS 5/10 A/P: POD #1 s/p right TKA irrigation and debridement, polyethylene exchange, arthrotomy and skin closure. 1) Continue pain meds as ordered 2) No anesthetic complications.
[2018-08-15] MEDS: AMINO ACIDS/PROTEIN HYDROLYS 30 ML LIQUID.PKT PO SCH (17:46)
[2018-08-16] MEDS: traMADol HCL 50 MG TABLET PO SCH ×5 (00:54→23:48)
--- NOTE | 2018-08-16 01:58 | PN ---
Progress Note (short form) - Note Progress Note: Pt seen and examined. Doing well. AVSS Selected Entries 07/14/18 08/15/18 18:00 21:00 Temperature 98.0 F 98 F Pulse Rate 62 74 Respiratory 17 18 Rate Blood Pressure 112/71 113/46 L O2 Sat by Pulse 98 98 Oximetry (%) Oxygen Delivery Room Air Room Air Method Laboratory Tests 07/14/18 07/14/18 07/15/18 07:26 07:26 07:30 WBC 5.5 6.8 Hgb 9.4 L 9.1 L Hct 28.2 L 28.8 L Plt Count 211 217 Sodium 135 L Potassium 3.5 Chloride 99 Carbon Dioxide 25 Anion Gap 11 BUN 22 H Creatinine 1.0 Est GFR (CKD-EPI)AfAm 65.18 Est GFR (CKD-EPI)NonAf 56.24 Random Glucose 164 H Calcium 8.8 Magnesium Albumin Prealbumin 08/15/18 08/15/18 08/15/18 07:29 07:29 07:29 WBC 5.0 Hgb 7.7 L Hct 24.5 L D Plt Count 315 Sodium 140 Potassium 4.4 Chloride 103 Carbon Dioxide 28 Anion Gap 9 BUN 21.0 H Creatinine 1.1 Est GFR (CKD-EPI)AfAm Est GFR (CKD-EPI)NonAf Random Glucose Calcium Magnesium 1.4 L Albumin 2.7 L Prealbumin 19.9 L Gen: NAD RLE: c/d/i, NVID A/P POD# 1 s/p R TKA I&D and poly exchange Hospitalist and nutrition consults appreciated PT/OOB - WBAT with brace on Will likely need rehab/SNF placement - plan for d/c
[2018-08-16] MEDS: AMINO ACIDS/PROTEIN HYDROLYS 30 ML LIQUID.PKT PO SCH ×2 (08:00→17:22)
[2018-08-16 08:05] LABS: HEMATOCRIT 24.6 % (32.4-45.2); HEMOGLOBIN 7.8 GM/dl (10.7-15.3); MCH 27.2 pg (25.7-33.7); MCHC 31.8 g/dl (32.0-36.0); MEAN CELL VOLUME 85.6 fl (80-96); MEAN PLT VOLUME 8.1 fl (7.5-11.1); PLATELET COUNT 311 K/MM3 (134-434); RBC 2.87 M/mm3 (3.60-5.2); RDW 14.6 % (11.6-15.6); WHITE BLOOD COUNT 6.1 K/mm3 (4.0-10.8)
[2018-08-16 08:22] LABS: CALCIUM 8.8 mg/dl (8.5-10); CREATININE 0.9 mg/dl (0.55-1.3); POTASSIUM 3.6 mmol/L (3.5-5.1)
[2018-08-16] MEDS ORDERED: PT OWN MED DRAWER 7, Y5N ONE (09:37)
[2018-08-16] MEDS: VITAMIN B COMP W-C 1 EA TABLET PO SCH (10:08)
[2018-08-16] MEDS: ASCORBIC ACID 500 MG TABLET (FP) PO SCH ×2 (10:09→21:08)
[2018-08-16] MEDS: SENNOSIDES/DOCUSATE COMBO (SENNA PLUS) TABLET (UD) PO SCH ×4 (10:09→21:07)
[2018-08-16] MEDS: GABAPENTIN 300 MG CAPSULE (FP) PO SCH (10:09)
[2018-08-16] MEDS: APIXABAN 2.5 MG TABLET PO SCH ×2 (10:09→21:07)
[2018-08-16] MEDS: ESCITALOPRAM OXALATE 10 MG TABLET (FP) PO SCH (10:09)
[2018-08-16] MEDS: ATENOLOL 50 MG TABLET (FP) PO SCH (10:09)
[2018-08-16] MEDS: oxyCODONE HCL 10 MG SUSTAINED ACTING TABLET PO SCH ×2 (10:09→21:07)
[2018-08-16] MEDS: MULTIVITAMINS THER W-MINERALS COMBO TABLET (FP) PO SCH (10:10)
[2018-08-16] MEDS: CHOLECALCIFEROL (VIT D3) 1,000 UNIT (25 MCG) TABLET PO SCH (10:10)
[2018-08-16] MEDS: PANTOPRAZOLE 40 MG TABLET (FP) PO SCH (10:10)
[2018-08-16] MEDS: CHLORTHALIDONE 25 MG TABLET PO SCH (10:11)
[2018-08-16] MEDS ORDERED: MAGNESIUM SULF 50% (8.12 MEQ/2 ML-1 GM VIAL) IVPB ONE (10:21)
--- NOTE | 2018-08-16 10:21 | PN ---
Physical Exam: SUBJECTIVE: Patient seen and examined OBJECTIVE: Vital Signs Period Temp Pulse Resp BP Sys/Gannon Pulse Ox Last 24 Hr 97.5 F-98.2 F 60-77 18-18 113-130/43-52 97-99 GENERAL: The patient is awake, alert, and fully oriented, in no acute distress. HEAD: Normal with no signs of trauma. EYES: PERRL, extraocular movements intact, sclera anicteric, conjunctiva clear. No ptosis. ENT: Ears normal, nares patent, oropharynx clear without exudates, moist mucous membranes. NECK: Trachea midline, full range of motion, supple. LUNGS: Breath sounds equal, clear to auscultation bilaterally, no wheezes, no crackles, no accessory muscle use. HEART: Regular rate and rhythm, S1, S2 without murmur, rub or gallop. ABDOMEN: Soft, nontender, nondistended, normoactive bowel sounds, no guarding, no rebound, no hepatosplenomegaly, no masses. EXTREMITIES: 2+ pulses, warm, well-perfused, no edema. NEUROLOGICAL: Cranial nerves II through XII grossly intact. Normal speech, gait not observed. PSYCH: Normal mood, normal affect. SKIN: Warm, dry, normal turgor, no rashes or lesions noted Laboratory Results - last 24 hr 08/15/18 08/16/18 08/16/18 07:29 07:15 07:20 WBC 6.1 RBC 2.87 L Hgb 7.8 L Hct 24.6 L MCV 85.6 MCH 27.2 MCHC 31.8 L RDW 14.6 Plt Count 311 MPV 8.1 Sodium Potassium Chloride Carbon Dioxide Anion Gap BUN Creatinine Est GFR (CKD-EPI)AfAm Est GFR (CKD-EPI)NonAf Random Glucose Calcium Magnesium Cancelled 1.5 L Albumin Cancelled Prealbumin 19.9 L 08/16/18 07:20 WBC RBC Hgb Hct MCV MCH MCHC RDW Plt Count MPV Sodium 136 Potassium 3.6 Chloride 100 Carbon Dioxide 29 Anion Gap 7 L BUN 19.0 H Creatinine 0.9 Est GFR (CKD-EPI)AfAm 74.04 Est GFR (CKD-EPI)NonAf 63.88 Random Glucose 108 H Calcium 8.8 Magnesium Albumin Prealbumin Active Medications Generic Name Dose Route Start Last Admin Trade Name Freq PRN Reason Stop Dose Admin Al Hydroxide/Mg Hydroxide 30 ml 08/13/18 17:29 Mylanta Oral Suspension - PO Q4H PRN DYSPEPSIA Amino Acids 30 ml 08/15/18 17:30 08/16/18 08:00 Prosource No Carb Liquid Pkt PO 30 ml BID@0800,1730 VLADIMIR Administration Apixaban 2.5 mg 08/15/18 10:00 08/16/18 10:09 Eliquis - PO 2.5 mg BID VLADIMIR Administration Ascorbic Acid 500 mg 08/13/18 22:00 08/16/18 10:09 Vitamin C - PO 500 mg BID VLADIMIR Administration Atenolol 50 mg 08/14/18 10:00 08/16/18 10:09 Tenormin - PO 50 mg DAILY VLADIMIR Administration Chlorthalidone 25 mg 08/14/18 10:00 08/16/18 10:11 Hygroton - PO 25 mg DAILY VLADIMIR Administration Cholecalciferol 1,000 unit 08/15/18 10:00 08/16/18 10:10 Vitamin D3 - PO 1,000 unit DAILY VLADIMIR Administration Escitalopram Oxalate 10 mg 08/14/18 10:00 08/16/18 10:09 Lexapro - PO 10 mg DAILY VLADIMIR Administration Gabapentin 300 mg 08/13/18 22:00 08/16/18 10:09 Neurontin - PO 08/16/18 21:59 300 mg BID VLADIMIR Administration Magnesium Hydroxide 30 ml 08/13/18 17:29 Milk Of Magnesia - PO PRN PRN CONSTIPATION Multivit/Ca Carb/B Cmplx/FA/Prenat 1 tablet 08/15/18 10:00 08/16/18 10:08 Nephro-Renato - PO 1 tablet DAILY VLADIMIR Administration Multivitamins/Minerals 1 each 08/16/18 10:00 08/16/18 10:10 Theragran-M PO 1 each DAILY [facility] Administration Ondansetron HCl 4 mg 08/13/18 17:29 08/15/18 18:44 Zofran Injection IVPUSH 4 mg Q6H PRN Administration NAUSEA Oxycodone HCl 5 mg 08/13/18 17:31 Roxicodone - PO 08/16/18 17:32 Q3H PRN PAIN LEVEL 1-5 Oxycodone HCl 10 mg 08/13/18 17:32 08/15/18 17:23 Roxicodone - PO 08/16/18 17:32 10 mg Q3H PRN Administration PAIN LEVEL 6-10 Oxycodone HCl 10 mg 08/14/18 22:00 08/16/18 10:09 Oxycontin - PO 10 mg BID VLADIMIR Administration Pantoprazole Sodium 40 mg 08/14/18 10:00 08/16/18 10:10 Protonix - PO 40 mg DAILY VLADIMIR Administration Senna/Docusate Sodium 2 tablet 08/13/18 22:00 08/16/18 10:09 Pericolace - PO 2 tablet BID VLADIMIR Administration Senna/Docusate Sodium 2 tablet 08/14/18 22:00 08/16/18 10:11 Pericolace - PO Not Given BID VLADIMIR Tramadol HCl 50 mg 08/13/18 18:00 08/16/18 06:18 Ultram - PO 50 mg Q6HPO VLADIMIR Administration ASSESSMENT/PLAN: 73 year-old female with a [facility] signficant for HTN, SLE-type symptoms, depression/ anxiety, and right knee arthritis s/p WILBUR right knee replacement on 07/13/18. Readmitted on 08/13/18 for deep wound and capsular dehiscence. Taken to OR on for irrigation, debridement, polyethylene exchange, arthrotomy and skin closure. Right knee replacement deep wound dehiscence s/p I&D --post-procedure day #2 --afebrile, no leukocytosis --perioperative antibiotics per surgery --pain management per surgery --protonix --bowel regimen --incentive spirometry --Eliquis 2.5 mg daily x 2 weeks for DVT prophylaxis Delayed surgical wound healing Protein deficiency --low albumin, prealbumin, low magnesium --start Prosource BID, Ensure, MVI with minerals --nutrition consult done, patient education Hypomagnesemia Lower extremity muscle cramping --was repleted yesterday, low again today with complaint of muscle cramping --give Mg 2g now, will also supplement K --keep Mg>2, K>4 Hypertension --BP stable --continue atenolol, chlorthalidone Elevated Creatinine --Cr 1.4 on admission, today 0.9 SLE-type symptoms --per review of pre-op H&P, previously treated with Plaquenil, no longer on meds Depression/anxiety --continue Lexapro FEN Fluids: PO intake adequate Electrolytes: replete as indicated Nutrition: regular diet DVT prophylaxis: on Eliquis Physical therapy Dispo: We will continue to follow the patient. Thank you for this consultative opportunity. Likely discharge tomorrow. Visit type - Emergency Visit Emergency Visit: Yes ED Registration Date: 08/13/18 Care time: The patient presented to the Emergency Department on the above date and was hospitalized for further evaluation of their emergent condition. - New Patient This patient is new to me today: No - Critical Care Critical Care patient: No
[2018-08-16] MEDS ORDERED: MAGNESIUM SULFATE IN WATER 2 GM/50 ML IVPB IVPB ONE (10:30)
[2018-08-16] MEDS ORDERED: POTASSIUM CHLORIDE TABS 20 MEQ TABLET.ER (FP) PO ONE (12:00)
--- NOTE | 2018-08-16 17:12 | PATH ---
Surgical Pathology Report Patient Name: NADYA SALINAS Med. Rec. #: [id number] /Age/Gender: 1945 (Age: 73) / F Account: [id number] Location: [facility] MED-SURG Taken: 08/14/2018 Received: 08/14/2018 Reported: 08/16/2018 Physicians: Cosmo Hopson M.D. Specimen(s) Received EXPLANT OF RIGHT KNEE Clinical History Dehiscence wound right knee Final Diagnosis EXPLANT RIGHT KNEE, REMOVAL: CONSISTENT WITH KNEE EXPLANT. GROSS EXAMINATION ONLY. Electronically Signed Lenard Chavez M.D. Gross Description Received fresh labeled "explant right knee," are 2 portions of a disrupted white plastic foreign body measuring 6.3 x 4.5 x 4.0 cm and 1.1 x 1.0 x 1.0 cm, consistent with a knee explant. Also received within the same container is a 5 cm in length fournier metallic wire as well as a 4.5 cm in length fournier metallic screw. No soft tissue is present. No sections are submitted, gross only. /08/15/2018 [facility]08/15/2018
[2018-08-16] MEDS: oxyCODONE HCL 5 MG TABLET PO PRN (18:48)
--- NOTE | 2018-08-16 22:04 | PN ---
Progress Note (short form) - Note Progress Note: Pt seen and examined. Doing well. AVSS Selected Entries 08/16/18 18:00 Temperature 99.1 F Pulse Rate 77 Respiratory 19 Rate Blood Pressure 134/56 L O2 Sat by Pulse 98 Oximetry (%) Oxygen Delivery Room Air Method Laboratory Tests 08/16/18 08/16/18 08/16/18 07:15 07:20 07:20 WBC 6.1 Hgb 7.8 L Hct 24.6 L Plt Count 311 Sodium 136 Potassium 3.6 Chloride 100 Carbon Dioxide 29 Anion Gap 7 L BUN 19.0 H Creatinine 0.9 Est GFR (CKD-EPI)AfAm 74.04 Est GFR (CKD-EPI)NonAf 63.88 Random Glucose 108 H Calcium 8.8 Magnesium 1.5 L Gen: NAD RLE: c/d/i, NVID A/P POD# 2 s/p R TKA I&D and poly exchange PT/OOB - WBAT with brace on Plan for d/c to [facility]
--- NOTE | 2018-08-16 22:12 | DS ---
Physical Examination Vital Signs: Vital Signs Temperature 99.1 F 08/16/18 18:00 Pulse Rate 77 08/16/18 18:00 Respiratory Rate 19 08/16/18 18:00 Blood Pressure 134/56 L 08/16/18 18:00 O2 Sat by Pulse Oximetry (%) 98 08/16/18 18:00 Labs: CBC, BMP 08/16/18 07:20 08/16/18 07:20 Discharge Summary Reason For Visit: DEHISCENSE OF WOUND Current Active Problems Wound dehiscence (Acute) Procedures: Principal: I&D, poly exchange, wound closure Hospital Course: Admitted for urgent surgery after fall with wound dehiscence. Scheduled for I& D and polyexchange with arthrotomy closure. Procedure performed without complications. Pt received postoperative antibiotic prophylaxis and DVT ppx. Ambulated with physical therapy. Stable for discharge to SNF with outpatient followup. Knee immobilizer at all times until skin heals. Condition: Stable - Instructions Diet, Activity, Other Instructions: Dr. Hopson - Knee Replacement Instructions Keep the dressing on until removed by Dr. Hopson in 10-14 days - it is antibacterial and waterproof and you can shower with it on. Call the office for a follow-up appointment with Dr. Hopson in 10-14 days. [phone] Take ELIQUIS 2.5 mg twice daily for 35 days to prevent blood clots in your legs. Take one Pantoprazole 40mg daily for 6 weeks to protect against heartburn and ulcers. Take Cephalexin (antibiotic) 3x/day for 10 days to help prevent skin infection. Take a multivitamin, stool softener, and extra Vitamin C supplement daily. For pain: *Mild pain (1-3/10): Take 1 Tramadol tablet every 4 hours as needed. Moderate pain (4-6/10): Take 1 Tramadol tablet and 1 Percocet tablet every 4 hours as needed. Severe pain (7-10/10): Take 1 Tramadol tablet and 2 Percocet tablets every 4 hours as needed. Activity: You can put as much weight on the operative leg as you want WITH THE KNEE BRACE ON AT ALL TIMES. After your follow-up appointment, you will be sent for more intensive outpatient physical therapy which will include machines and equipment that the home therapist cannot bring to your house. Always use a walker or cane for balance and to prevent falls. Expect to see swelling/bruising from the operative site all the way down to your toes. Disposition: [facility] - Home Medications Comprehensive Discharge Medication List: Ambulatory Orders Atenolol/Chlorthalidone [Atenolol-Chlorthalidone 50-25] 1 each PO DAILY Cholecalciferol (Vitamin D3) [Vitamin D3] 1,000 unit PO DAILY 06/30/18 Escitalopram Oxalate [Lexapro -] 10 mg PO DAILY 06/30/18 Vitamin B Complex 1 each PO DAILY 06/30/18 Ascorbic Acid [Vitamin C -] 500 mg PO BID tablet 07/15/18 Aspirin [ASA -] 325 mg PO DAILY@0800 tablet 07/15/18 Oxycodone HCl/Acetaminophen [Percocet 5-325 mg Tablet] 1 - 2 tab PO Q4H PRN #60 tablet MDD 10 07/15/18 Pantoprazole Sodium [Protonix -] 40 mg PO DAILY #40 tablet.ec 07/15/18 Sennosides/Docusate Sodium [Pericolace -] 2 tablet PO BID tablet 07/15/18 traMADol HCL [Ultram -] 50 mg PO Q4H PRN #42 tablet MDD 6 07/15/18 Amino Acids/Protein Hydrolys [Prosource No Carb Liquid Pkt] 30 ml PO BID@0800, 1730 packet 08/16/18 Apixaban [Eliquis -] 2.5 mg PO BID tablet 08/16/18 Multivitamins [Multivit ([facility] Formul[facility])] 1 tab PO DAILY tab 08/16/18 Vitamin B Comp W-C [Nephro-Renato -] 1 tablet PO DAILY tablet 08/16/18 traMADol HCL [Ultram -] 50 mg PO Q4H PRN #60 tablet MDD 6 08/16/18
[2018-08-17] MEDS: traMADol HCL 50 MG TABLET PO SCH ×3 (06:37→12:54)
[2018-08-17 07:24] LABS: HEMOGLOBIN 7.6 GM/dl (10.7-15.3); MCH 27.1 pg (25.7-33.7); MCHC 31.5 g/dl (32.0-36.0); MEAN PLT VOLUME 8.3 fl (7.5-11.1); PLATELET COUNT 305 K/MM3 (134-434); RDW 14.5 % (11.6-15.6); WHITE BLOOD COUNT 7.4 K/mm3 (4.0-10.8)
[2018-08-17 07:35] LABS: CALCIUM 9.1 mg/dl (8.5-10); CREATININE 0.8 mg/dl (0.55-1.3); POTASSIUM 4.5 mmol/L (3.5-5.1)
[2018-08-17] MEDS: AMINO ACIDS/PROTEIN HYDROLYS 30 ML LIQUID.PKT PO SCH (08:47)
[2018-08-17] MEDS: CHOLECALCIFEROL (VIT D3) 1,000 UNIT (25 MCG) TABLET PO SCH (09:11)
[2018-08-17] MEDS: PANTOPRAZOLE 40 MG TABLET (FP) PO SCH (09:11)
[2018-08-17] MEDS: ATENOLOL 50 MG TABLET (FP) PO SCH (09:11)
[2018-08-17] MEDS: ASCORBIC ACID 500 MG TABLET (FP) PO SCH (09:12)
[2018-08-17] MEDS: CHLORTHALIDONE 25 MG TABLET PO SCH (09:12)
[2018-08-17] MEDS: ESCITALOPRAM OXALATE 10 MG TABLET (FP) PO SCH (09:12)
[2018-08-17] MEDS: MULTIVITAMINS THER W-MINERALS COMBO TABLET (FP) PO SCH (09:12)
[2018-08-17] MEDS: oxyCODONE HCL 10 MG SUSTAINED ACTING TABLET PO SCH (09:12)
[2018-08-17] MEDS: APIXABAN 2.5 MG TABLET PO SCH (09:12)
[2018-08-17] MEDS ORDERED: PT OWN MED DRAWER 7, Y5N ONE (09:19)
[2018-08-17] MEDS: VITAMIN B COMP W-C 1 EA TABLET PO SCH (09:19)
[2018-08-17] MEDS: SENNOSIDES/DOCUSATE COMBO (SENNA PLUS) TABLET (UD) PO SCH (09:20)
--- NOTE | 2018-08-17 13:43 | PN ---
Progress Note (short form) - Note Progress Note: Pt seen and examined. Doing well. AVSS Selected Entries 08/17/18 09:41 Temperature 98.9 F Pulse Rate 85 Respiratory 18 Rate Blood Pressure 132/48 L Blood Pressure 69 Mean O2 Sat by Pulse 96 Oximetry (%) Oxygen Delivery Room Air Method Laboratory Tests 08/17/18 08/17/18 07:13 07:13 WBC 7.4 Hgb 7.6 L Hct 24.0 L Plt Count 305 Sodium 135 L Potassium 4.5 Chloride 98 Carbon Dioxide 29 Anion Gap 8 BUN 22.0 H Creatinine 0.8 Est GFR (CKD-EPI)AfAm 85.37 Est GFR (CKD-EPI)NonAf 73.65 Random Glucose 91 Calcium 9.1 Gen: NAD RLE: c/d/i, NVID A/P POD# 3 s/p R TKA I&D and poly exchange PT/OOB - WBAT with brace on Plan for d/c to [facility]
[2018-08-17 14:51] VITALS: BP 133/53; PULSE 91; TEMP 98.4
--- NOTE | 2018-09-05 05:52 | SPEC ---
DATE OF OPERATION: 08/14/2018 PREOPERATIVE DIAGNOSIS: Right total knee replacement wound dehiscence. POSTOPERATIVE DIAGNOSIS: Right total knee replacement wound dehiscence. PROCEDURE: Right total knee replacement, irrigation and debridement, polyethylene exchange, and closure of arthrotomy and skin. SURGEON: Jeffery Recio MD CUSTOMER CARE AGENT: KINDRA Barboza ANESTHESIA: Spinal plus sedation. ESTIMATED BLOOD LOSS: 150 mL. COMPLICATIONS: None. DISPOSITION: The patient was awakened and transferred to the PACU in stable condition. INDICATIONS: This is a 73-year-old female who underwent a right total knee replacement on July 13, 2018, uneventfully. She did well postoperatively and was discharged home. She was seen postoperatively in the office and was doing well. Her wound had healed well and she had started outpatient physical therapy without incident. At approximately 1 month postoperatively, the patient states she twisted her knee while using stairs at home and felt increased pain in the knee, which had prior to this had been healing well and had much less pain. The patient states that 3 days later on the day of admission, she woke up in bed, and while getting out of bed, felt sharp pain as the knee replacement incision opened and started bleeding. The patient called 911 and was taken to [facility] by ambulance where the orthopedic PA did a bedside irrigation and packing of the wound with Betadine-soaked gauze. She was then transferred to [facility] and admitted through the ER with plans to take her to the OR in the morning. The patient denied every falling or hyperflexing her knee. The only injury she had was when she missed a step an twisted her knee causing an increase in pain. Up until that pint, she had no complaints of the knee, and it was healing on schedule. The patient was seen and examined by Dr. Recio as an inpatient and diagnosed with wound dehiscence. She was therefore indicated for irrigation and debridement as well as wound exploration. We elected also to proceed with polyethylene exchange should there be any tracking of the dehiscence into the intracapsular space in order to minimize the chances of infection as the component would have been exposed to the environment. The risks, benefits, and alternatives to the procedure were explained to the patient in great detail, and she elected to proceed with the surgery. DESCRIPTION OF PROCEDURE: On the day of surgery, the patient was taken to the OR and placed on the OR table. Spinal anesthesia was administered by the anesthesiologist. The patient was then positioned supine on the table and all bony prominences were padded. A tourniquet was placed on the proximal thigh. The right lower extremity was then prepped and draped in the usual sterile fashion and intravenous antibiotics were given for infection prophylaxis. A surgical time-out was then performed with the team, and the patients identity, procedure, side, availability of implants, and the administration of antibiotics was confirmed. With the patient under anesthesia, the wound was explored and found to have a mid-incision dehiscence, which was full-thickness and appeared to carry down through all layers to the arthrotomy which also was disrupted. The proximal and distal poles of the incision had healed, and a scalpel was used to extend the open area through the previous knee replacement incision scar in order to have full exposure of the knee replacement. The defect in the arthrotomy was again visualized and a full medial parapatellar arthrotomy was performed. We did encounter sutures from the previous arthrotomy closure, which had started to dissolve, and these were removed. The patella and patellar tendon were evaluated and were found to be intact. This was expected because the patient preoperatively was able to [id number], even though she had been wrapped in a Betadine-soaked bandage and had this wound. A small portion of the fat and scar tissue was then excised off the proximal medial tibia, and the knee was flexed, and the polyethylene insert was removed. There was found to be no other problems with the implants and no evidence of any fracture or bony damage. The wound was then irrigated sequentially with 6 L of saline via pulsatile lavage. The saline contained 1 g of Ancef per 1 L of saline. Following this, a 3-minute dilute Betadine lavage was performed following the [place] protocol. The wound was again irrigated with normal saline. Next Betadine-soaked sponges were used to clean the components such that there was no debris or possible biofilm forming material on it. The wound was again irrigated with 3 L of normal saline via pulsatile lavage again containing 1 g of Ancef per 1 L of normal saline. Once this was completed, a new 19-mm total stabilized polyethylene component was placed, and the knee was taken through a full range of motion and was found to have good soft tissue balance and good patellar tracking. We did not find any implant-related reasons that she would have this wound dehiscence 1 month after surgery. A vancomycin powder was then placed in the wound around the components for infection prophylaxis. No. 1 Vicryl, No. 2 FiberWire, and No. 0 V-Loc 180 barbed sutures were used to close the arthrotomy. No. 1 Vicryl and 2-0 V-Loc 90 sutures were used in the subcutaneous tissues. The skin was closed using both 3-0 V-Loc 90 suture in a running subcuticular fashion and Dermabond skin adhesive. Once this was completed, a sterile Aquacel dressing was applied. The tourniquet was then deflated, and the patient was placed in a knee immobilizer to allow the skin to heal without tension from flexing the knee. The patient was then awakened and taken to the PACU in stable condition. The postoperative plan for this patient will be immobilization in extension until the skin fully heals. We will order a nutrition evaluation to determine whether there may be nutritional deficiencies which contributed to the wound not healing and dehiscing 1 full month after surgery. Lab tests checking for protein malnutrition were ordered again to evaluate for any nutritional deficiency that may have contributed to poor wound healing. The patient will be allowed to be weightbearing as tolerated with the knee immobilizer in place. This will be removed later when she is evaluated in the office based on the state of wound healing and we will resume flexion of the knee and physical therapy once the skin is healed. JEFFERY RECIO M.D. [id number]
== END 2018-08-17 16:04 | DRG 908 ==
LOC: FER 16:30 → FM/S 16:51
PROVIDERS: ADMIT Student in an Organized Health Care Education/Training Program; ATTEND Student in an Organized Health Care Education/Training Program
PROC: 0SRV0JZ Replacement of Right Knee Joint, Tibial Surface with Synthetic Substitute, Open Approach (ICD-10-PCS; 2018-08-14)
PROC: 0JDN0ZZ Extraction of Right Lower Leg Subcutaneous Tissue and Fascia, Open Approach (ICD-10-PCS; 2018-08-14)
PROC: 3E1U38Z Irrigation of Joints using Irrigating Substance, Percutaneous Approach (ICD-10-PCS; 2018-08-14)
PROC: 0SPV0JZ Removal of Synthetic Substitute from Right Knee Joint, Tibial Surface, Open Approach (ICD-10-PCS; principal; 2018-08-14 18:04)
DX: T81.32XA Disruption of internal operation (surgical) wound, not elsewhere classified, initial encounter (principal); E46 Unspecified protein-calorie malnutrition; Y83.4 Other reconstructive surgery as the cause of abnormal reaction of the patient, or of later complication, without mention of misadventure at the time of the procedure; E83.42 Hypomagnesemia; I10 Essential (primary) hypertension; M19.90 Unspecified osteoarthritis, unspecified site; F41.9 Anxiety disorder, unspecified; F32.9 Major depressive disorder, single episode, unspecified; M32.9 Systemic lupus erythematosus, unspecified
CPT/HCPCS: 36415; 73560-TC-RT-FY; 80048; 80053; 82040; 83735; 84134; 85025; 85027; 88300-TC; 94760; 97116-GP; 97163-GP; 99283-25; J0131

== ENCOUNTER 2018-09-11 11:26 | Inpatient (IN) | payer OTHER ==
[2018-09-08 13:38] VITALS: BMI 29.4
--- NOTE | 2018-09-11 07:47 | HP ---
Admitting History and Physical - Admission Chief Complaint: right knee incision drainage History of Present Illness: 73 year old female presents in regard to her right knee. She is status post a right total knee arthroplasty, MAKOplasty on 07/12/2018. Initially, she did well with the surgery until 1 month later when her wound dehisced. She was then re- admitted on 08/13/2018, where incise and drainage with polyethylene swap took place. She then had no issues for another month, until she presented to the office with purulent drainage from her incision. Repeat incise and drainage with polyethylene exchange was discussed with the patients. At this point, patient would like to proceed. History Source: Patient - Past Medical History Cardiovascular: Yes: HTN Psych: Yes: Depression Musculoskeletal: Yes: Osteoarthritis - Past Surgical History Additional Past Surgical History: See written history & physical. - Smoking History Smoking history: Never smoked Have you smoked in the past 12 months: No - Alcohol/Substance Use Hx Alcohol Use: No Home Medications - Allergies Allergies/Adverse Reactions: Allergies Allergy/AdvReac Type Severity Reaction Status Date / Time shellfish derived Allergy Verified 08/13/18 16:49 No Known Drug Allergies AdvReac Unknown Verified 08/13/18 16:49 Aquacell-AG Dressing Allergy Intermediate Rash Uncoded 08/14/18 08:34 - Home Medications Home Medications: Ambulatory Orders Atenolol/Chlorthalidone [Atenolol-Chlorthalidone 50-25] 1 each PO DAILY Cholecalciferol (Vitamin D3) [Vitamin D3] 1,000 unit PO DAILY 06/30/18 Escitalopram Oxalate [Lexapro -] 10 mg PO DAILY 06/30/18 Vitamin B Complex 1 each PO DAILY 06/30/18 Ascorbic Acid [Vitamin C -] 500 mg PO BID tablet 07/15/18 Oxycodone HCl/Acetaminophen [Percocet 5-325 mg Tablet] 1 - 2 tab PO Q4H PRN #60 tablet MDD 10 07/15/18 Sennosides/Docusate Sodium [Pericolace -] 2 tablet PO BID tablet 07/15/18 Amino Acids/Protein Hydrolys [Prosource No Carb Liquid Pkt] 30 ml PO BID@0800, 1730 packet 08/16/18 Apixaban [Eliquis -] 2.5 mg PO BID tablet 08/16/18 Multivitamins [Multivit ([facility] Formulary)] 1 tab PO DAILY tab 08/16/18 Aspirin [Ecotrin] 325 mg PO DAILY 09/08/18 Omeprazole Magnesium [Prilosec Otc] 20 mg PO DAILY 09/08/18 Review of Systems - Review of Systems Musculoskeletal: reports: Other (drainage from incision) Neurological: reports: Incoordination Physical Examination Constitutional: Yes: Well Nourished, No Distress Eyes: Yes: Conjunctiva Clear HENT: Yes: Atraumatic Neck: Yes: Supple Cardiovascular: Yes: Regular Rate and Rhythm Respiratory: Yes: Regular Gastrointestinal: Yes: Soft ...Rectal Exam: Yes: Deferred Musculoskeletal: Yes: Other (Purulent drainage from anterior incision) Assessment/Plan 73 year old female presents in regard to her right knee. She is status post a right total knee arthroplasty, MAKOplasty on 07/12/2018. Initially, she did well with the surgery until 1 month later when her wound dehisced. She was then re- admitted on 08/13/2018, where incise and drainage with polyethylene swap took place. She then had no issues for another month, until she presented to the office with purulent drainage from her incision. Repeat incise and drainage with polyethylene exchange was discussed with the patients. At this point, patient would like to proceed. Pros, cons, risks, benefits and alternatives of a right knee arthroplasty incise and drainage with polyethylene swap was discussed with the patient at length. Patient confirms her understand and consents to proceed with a right knee arthroplasty, incise and drainage with polyethylene swap.
[~2018-09-11 11:26] MED LIST: CEFAZOLIN 2 GM in DEXTROSE 5%-WATER - 50 ML IVPB ONE; CELECOXIB 200 MG CAPSULE PO ONE; GABAPENTIN 300 MG CAPSULE (FP) PO ONE; PANTOPRAZOLE 40 MG TABLET (FP) PO ONE; TRANEXAMIC ACID 1000 MG/10 ML VIAL IVPUSH ONE; VANCOMYCIN 1,250 MG in DEXTROSE 5%-WATER - 250 ML IVPB ONE; oxyCODONE HCL 10 MG SUSTAINED ACTING TABLET PO ONE
[2018-09-11 13:42] LABS: BASO % 0.3 % (0-2.0); EOS % 4.7 % (0-4.5); HEMATOCRIT 24.9 % (32.4-45.2); LYMPH % 16.6 % (8-40); MCH 26.5 pg (25.7-33.7); MCHC 32.2 g/dl (32.0-36.0); MEAN CELL VOLUME 82.3 fl (80-96); MEAN PLT VOLUME 7.9 fl (7.5-11.1); MONO % 12.7 % (3.8-10.2); NEUT % 65.7 % (42.8-82.8); PLATELET COUNT 474 K/MM3 (134-434); RBC 3.03 M/mm3 (3.60-5.2); WHITE BLOOD COUNT 7.2 K/mm3 (4.0-10.8)
[2018-09-11 13:46] LABS: CALCIUM 9.4 mg/dl (8.5-10); CREATININE 0.9 mg/dl (0.55-1.3); POTASSIUM 3.1 mmol/L (3.5-5.1)
[2018-09-11 14:25] LABS: ERYTHROCYTE SEDIMENTATION RATE 119 mm/hr (0-30)
[2018-09-11] MEDS ORDERED: TOBRAMYCIN SULFATE ONE (14:41)
[2018-09-11] MEDS ORDERED: VANCOMYCIN 1,000 MG VIAL (RESTRICTED TO ID ONLY) ONE ×3 (14:53→16:27)
[2018-09-11] MEDS ORDERED: KCL 10 MEQ IVPB 30 MEQ/300 ML INFUS.BAG IVPB ONE (15:10)
[2018-09-11] MEDS ORDERED: SUCCINYLCHOLINE CHLORIDE 200 MG/10 ML VIAL ONE (15:36)
[2018-09-11] MEDS ORDERED: PROPOFOL 20 ML ONE ×2 (15:36)
[2018-09-11] MEDS ORDERED: ROCURONIUM BROMIDE 50 MG/5 ML VIAL ONE (15:36)
[2018-09-11] MEDS ORDERED: fentaNYL CITRATE 250 MCG/5 ML VIAL ONE (15:37)
[2018-09-11] MEDS ORDERED: MIDAZOLAM HCL 2 MG/2 ML SINGLE DOSE VIAL ONE (15:37)
[2018-09-11] MEDS ORDERED: ONDANSETRON 4 MG/2 ML VIAL ONE (15:38)
[2018-09-11] MEDS ORDERED: DESFLURANE GAS 240 ML BOTTLE IH ONE (15:40)
[2018-09-11] MEDS ORDERED: SEVOFLURANE 250 ML BTL ONE (15:40)
[2018-09-11] MEDS ORDERED: ACETAMINOPHEN INJECTION 100 ML IVPB ONE ×2 (15:40→18:44)
[2018-09-11] MEDS ORDERED: ONDANSETRON 4 MG/2 ML VIAL IVPUSH PRN ×2 (15:52→18:13)
[2018-09-11] MEDS ORDERED: oxyCODONE HCL 5 MG TABLET PO PRN ×2 (15:52)
[2018-09-11] MEDS ORDERED: ceFAZolin SODIUM 1 GM VIAL ONE ×2 (16:02→16:27)
[2018-09-11] MEDS ORDERED: ePHEDrine SULFATE 50 MG/1 ML AMPULE ONE (16:15)
[2018-09-11] MEDS ORDERED: NEOSTIGMINE METHYLSULFATE 0.5 MG/ML - 10 ML MDV ONE (17:51)
[2018-09-11] MEDS ORDERED: GLYCOPYRROLATE 0.2 MG/1 ML VIAL ONE (17:51)
--- NOTE | 2018-09-11 18:10 | OP ---
Operative Note - Note: Operative Date: 09/11/18 Pre-Operative Diagnosis: right infected TKA Operation: right knee I&D, poly exchange, antibiotic bead placement, incisional VAC placement Post-Operative Diagnosis: Same as Pre-op Surgeon: Cosmo Hopson Wash Test Checker: Hanna Milligan Anesthesia: Spinal Estimated Blood Loss (mls): 50
[2018-09-11] MEDS ORDERED: ACETAMINOPHEN 1000 MG/100 ML VIAL (NON FORMULARY) IVPB ONE (18:12)
[2018-09-11] MEDS ORDERED: MAG HYDROX/AL HYDROX/SIMETH 30 ML UNIT-DOSE CUP PO PRN (18:13)
[2018-09-11] MEDS ORDERED: MAGNESIUM HYDROX 2400MG/30ML ORAL SUSPENSION 30 ML CUP PO PRN (18:13)
[2018-09-11] MEDS ORDERED: LACTATED RINGERS SOLUTION 1,000 ML IV SCH (18:15)
[2018-09-11] MEDS ORDERED: traMADol HCL 50 MG TABLET ONE (18:45)
[2018-09-11] MEDS ORDERED: KETOROLAC TROMETHAMINE 30 MG/1 ML VIAL ONE (18:45)
[2018-09-11] MEDS: KETOROLAC TROMETHAMINE 30 MG/1 ML VIAL IVPUSH SCH ×2 (18:53→23:24)
[2018-09-11] MEDS: traMADol HCL 50 MG TABLET PO SCH ×2 (19:15→23:25)
[2018-09-11] MEDS: LACTATED RINGERS SOLUTION 1,000 ML IV SCH (20:45)
[2018-09-11] MEDS: FERROUS SO4 325 MG TABLET (FP) PO SCH (21:31)
[2018-09-11] MEDS: SENNOSIDES/DOCUSATE COMBO (SENNA PLUS) TABLET (UD) PO SCH (21:31)
[2018-09-11] MEDS: ASCORBIC ACID 500 MG TABLET (FP) PO SCH (21:31)
[2018-09-11] MEDS: GABAPENTIN 300 MG CAPSULE (FP) PO SCH (21:32)
[2018-09-11] MEDS: CEFAZOLIN 2 GM/D5W 2 GM/50 ML ML IVPB SCH (23:24)
[2018-09-12] MEDS ORDERED: VANCOMYCIN 1 GM in D5W (PRE-DOCKED) 1,000 MG/250 ML IVPB SCH ×2 (04:00→16:00)
[2018-09-12] MEDS: KETOROLAC TROMETHAMINE 30 MG/1 ML VIAL IVPUSH SCH ×2 (06:15→11:29)
[2018-09-12] MEDS: traMADol HCL 50 MG TABLET PO SCH ×3 (06:16→18:26)
[2018-09-12 08:05] LABS: MCH 26.5 pg (25.7-33.7); MEAN PLT VOLUME 8.1 fl (7.5-11.1); PLATELET COUNT 407 K/MM3 (134-434); RBC 2.65 M/mm3 (3.60-5.2); RDW 14.9 % (11.6-15.6); WHITE BLOOD COUNT 5.1 K/mm3 (4.0-10.8)
[2018-09-12 08:06] LABS: CREATININE 1.2 mg/dl (0.55-1.3); POTASSIUM 3.5 mmol/L (3.5-5.1)
[2018-09-12] MEDS: CEFAZOLIN 2 GM/D5W 2 GM/50 ML ML IVPB SCH (08:36)
[2018-09-12] MEDS: AMINO ACIDS/PROTEIN HYDROLYS 30 ML LIQUID.PKT PO SCH ×2 (08:36→16:31)
[2018-09-12] MEDS ORDERED: PT OWN MED DRAWER 7, Y5N ONE (09:27)
[2018-09-12] MEDS ORDERED: PIPERACILLIN/TAZOBACTAM 3.375 GM VIAL IVPB ONE ×2 (09:28→18:04)
[2018-09-12] MEDS ORDERED: DEXTROSE 5%-WATER - 50 ML IVPB ONE ×2 (09:28→18:04)
[2018-09-12] MEDS ORDERED: PATIENT'S OWN MEDICATION (NON-FORMULARY) (Atenolol/Chlorthalidone [Atenolol-Chlorthalidone PO SCH (10:00)
[2018-09-12] MEDS: PIPERACILLIN/TAZOB 3.375 GM 3.375 GM in DEXTROSE 5%-WATER - 50 ML IVPB SCH ×2 (10:17→18:25)
[2018-09-12] MEDS: PANTOPRAZOLE 40 MG TABLET (FP) PO SCH (10:19)
[2018-09-12] MEDS: GABAPENTIN 300 MG CAPSULE (FP) PO SCH ×2 (10:20→21:36)
[2018-09-12] MEDS: CHOLECALCIFEROL (VIT D3) 1,000 UNIT (25 MCG) TABLET PO SCH (10:20)
[2018-09-12] MEDS: VITAMIN B COMPLEX W/C COMBO TABLET (FP) PO SCH (10:20)
[2018-09-12] MEDS: FERROUS SO4 325 MG TABLET (FP) PO SCH ×2 (10:20→21:36)
[2018-09-12] MEDS: MULTIVITAMINS (DAILY MVI) TABLET (FP) PO SCH (10:20)
[2018-09-12] MEDS: SENNOSIDES/DOCUSATE COMBO (SENNA PLUS) TABLET (UD) PO SCH ×2 (10:20→21:36)
[2018-09-12] MEDS: ASCORBIC ACID 500 MG TABLET (FP) PO SCH ×2 (10:20→21:36)
[2018-09-12] MEDS: ESCITALOPRAM OXALATE 10 MG TABLET (FP) PO SCH (10:20)
[2018-09-12] MEDS: ATENOLOL 50 MG TABLET (FP) PO SCH (10:20)
[2018-09-12] MEDS: APIXABAN 2.5 MG TABLET PO SCH ×2 (10:20→21:36)
[2018-09-12] MEDS: CHLORTHALIDONE 25 MG TABLET PO SCH (10:21)
--- NOTE | 2018-09-12 11:54 | OP ---
DATE OF OPERATION: 09/11/2018 PREOPERATIVE DIAGNOSIS: Right total knee replacement infection. POSTOPERATIVE DIAGNOSIS: Right total knee replacement infection. PROCEDURE: Irrigation and debridement of right total knee replacement with polyethylene exchange, placement of calcium sulfate antibiotic beads, closure of arthrotomy and skin and incisional vacuum-assisted closure placement. SURGEON: Cosmo Hopson MD STATISTICAL METHODS PROFESSOR: KINDRA Barboza ANESTHESIA: General. ESTIMATED BLOOD LOSS: 50 mL COMPLICATIONS: None. DISPOSITION: The patient was transferred to the PACU in stable condition. IMPLANTS USED: Maria Triathlon size 2 19 mm total stabilized polyethylene component. STIMULAN antibiotic beads containing Tobramycin, vancomycin, and cefazolin. INDICATIONS: This is a 73-year-old female who underwent a right total knee replacement on July 13, 2018 uneventfully. She did well postoperatively and was discharged home. She was seen postoperatively in the office and was doing well. Her wound had healed and she started outpatient physical therapy without incident. At approximately 1 month postoperatively, the patient states she twisted her knee while u sing the stairs at home and felt increased pain in the knee, which had prior to this been healing well and had decreasing pain. Three days later the patient states she woke up in bed and while getting out of bed she again felt twisting of the knee and felt a sharp pain and the knee replacement incision opened and started bleeding. She was brought in the hospital and underwent irrigation and debridement, polyethylene exchange and closure of the arthrotomy and skin on August 14, 2018. She was placed in a knee immobilizer and discharged. She was seen postoperatively in the office at 2 weeks and was doing well. The wound was healing and she was allowed to start physical therapy. The patient presented to the office last week stating that it was healing well, then for approximately 3 days she noted increasing drainage and foul odor from the wound. She was seen and examined by Dr. Hopson in the office and diagnosed with a wound infection. It was unclear whether this was a deep infection, but we elected to proceed with open irrigation and debridement in the operating room and placement of antibiotic beads. The risks, benefits and alternatives to the procedure were explained to the patient in great detail and she elected to proceed with the procedure. We specifically discussed that because she had had symptoms at this point for less than 7 days, there was a possibility, though not 100%, that the infection could be eradicated with polyethylene exchange, irrigation and debridement and retention of components. The alternative would be a full 2-stage exchange with removal of the total knee replacement, which would require several surgeries and carry with it much more morbidity. The patient understood that if the irrigation and debridement was not successful and the infection returned, then she would require the more extensive 2-stage procedure to remove the entire total knee prosthesis. PROCEDURE: On the day of surgery, the patient was taken to the operating room and placed on the OR table. General anesthesia was administered by the anesthesiologist. The patient was then positioned supine on the table and all bony prominences were padded. A tourniquet was placed in the proximal thigh. The right lower extremity was then prepped and draped in the usual sterile fashion and a surgical timeout was then performed with the team and the patient's identity, procedure side bony implants was confirmed. The tourniquet was then inflated to 275 mmHg. The incision was then opened at the previous scar and there was found to be significant scar tissue and healing had occurred. We did find a sinus tract with purulent-appearing material extending from the lateral subcutaneous tissue to the lateral gutter of the knee. Sutures from the previous arthrotomy closure and skin closure were encountered and were removed. The patella and patellar tendon were evaluated and found to be intact. Cultures were taken at various steps along the way both from the subcutaneous tissue and also around the prosthesis and gutters. Thorough resection of scar tissue, friable/purulent-appearing tissue and synovial tissue was then performed in both medial and lateral gutters, as well as in the supracondylar region of the knee. The knee was then flexed and the polyethylene insert was removed. There was found to be no other problems with the implants and no evidence of any fracture or bony damage. We cleaned behind the polyethylene implant and removed any friable tissue, scar tissue and purulent-appearing material. The wound was then irrigated with 3 L of saline via pulsatile lavage. Betadine-soaked sponges were then used to clean all surfaces of the prosthesis and Betadine-soaked scrub brushes were used to scrub all the soft tissues for mechanical debridement. Once this was completed, the wound was again irrigated with 3 L of saline via pulsatile lavage. Next, a 3-minute dilute Betadine lavage was performed following the [place] protocol. While this was soaking, Betadine-soaked sponges were again used to clean the components such that there was no debris or possible biofilm material on the surface of the metal. The wound was then irrigated with 3 L of normal saline containing 1 g of Ancef per 1 L of saline using a pulsatile lavage device. Once this was completed, STIMULAN calcium sulfate beads, which had been prepared on the back table according to instructions and contained vancomycin, Tobramycin, and Ancef, were placed throughout the gutters of the knee, as well as around the posterior capsule. A new 19 mm total stabilized polyethylene component was then placed and the knee was taken through a full range of motion and found to have good soft tissue balance and patellar tracking. A No. 2 FiberWire and a No. 0 V-Loc 180 barbed sutures were then used to close the arthrotomy. A No. 0 V-Loc 180 barbed sutures were used next to close the sinus tract in the lateral gutter. Additional STIMULAN antibiotic beads were then placed subcutaneously overlying the area where the sinus tract had been repaired in the area of subcutaneous tissue over the lateral gutter of the knee. The skin was then closed in 1 thick layer using a No. 1 non-absorbable Prolene stitch in a running continuous pattern. This was done to facilitate wound drainage into the incisional VAC, which was placed next. Once the VAC was placed, a compressive Mickey wrap was placed around the knee. A knee immobilizer was placed to allow the skin to heal without tension from flexing the knee. The tourniquet was deflated and the patient was then awakened and taken to the PACU in stable condition. The postoperative plan for this patient will be immobilization in extension with an incisional VAC until the skin fully heals. Once the skin is fully healed, then the non-dissolvable skin stitches will be removed when the VAC is discontinued. Infectious Disease consult was ordered. The patient in the interim will be kept on Ancef and vancomycin IV until cultures are returned and a more tailored antibiotic regimen can be started. The patient will be allowed to be weight-bearing as tolerated with the knee immobilizer in place. We will continue immobilization until the skin has fully healed and the infection has been fully eradicated and at that point restart physical therapy. Lauren PARKER/[id number]
[2018-09-12] MEDS: VANCOMYCIN 1 GRAM (PRE-DOCKED) 1,000 MG/250 ML BAG IVPB SCH (16:29)
[2018-09-12] MEDS: LACTATED RINGERS SOLUTION 1,000 ML IV SCH (16:29)
--- NOTE | 2018-09-12 17:09 | PN ---
Progress Note (short form) - Note Progress Note: ID CONSULT DICTATED S/P I&D R KNEE MAKOplasty. AWAIT C/S EMPIRIC VANCOMYCIN/ ZOSYN
--- NOTE | 2018-09-12 22:34 | CONS ---
DATE OF CONSULTATION: DATE OF DICTATION: 09/12/2018 The patient is a 73-year-old female who is evaluated for an infected knee prosthesis. The patient underwent a right knee MAKOplasty on July 12, 2018. She reports that she did well for the first month postoperatively. She was in rehabilitation when she reports twisting her knee, resulting in partial wound dehiscence. She had been seen in followup by Orthopedics and was readmitted to the hospital on August 13, 2018, where an I and D, washout, and polyethylene swap was performed. Postoperatively, she was discharged back to a senior living facility on oral antibiotic therapy. She did well for the ensuing month. She now reports developing purulent drainage from the surgical wound. She was reevaluated and advised readmission on September 11, 2018, where a repeat incision and drainage and polyethylene exchange was performed. She is presently postoperative day No. 1. She has no complaints of pain at rest. She denies any fever or chills. Cultures are pending. PAST MEDICAL HISTORY: Positive for osteoarthritis, hypertension, depression. No known allergies. LABORATORY DATA: White count 5.1, hematocrit 22.0, platelet count 407. Creatinine 1.2. ESR 119. C-reactive protein 13.5. PHYSICAL EXAMINATION: General: She is awake and alert, seated in chair. Vital Signs: Temperature 98.3, blood pressure 117/44, pulse 68 and regular, respirations 18/min. HEENT: Sclerae anicteric. Heart Sounds: S1, S2. Lungs: Clear. Abdomen: Soft and nontender. Extremities: On examination of the right lower extremity, there is a postoperative surgical dressing in place as well as a Wound VAC, which is draining serosanguinous fluid. IMPRESSION: Postoperative day number 1 incision and drainage/washout/polyethylene exchange, right knee. Await operative cultures. Empiric antibiotic coverage with vancomycin and Zosyn. Will discuss duration of intravenous antibiotic therapy with Orthopedics. We will follow. Thank you for the kind referral. MAINOR AGUILAR M.D. [id number]
[2018-09-12] MEDS ORDERED: oxyCODONE HCL 5 MG TABLET PO PRN (22:40)
--- NOTE | 2018-09-12 22:46 | PN ---
Progress Note (short form) - Note Progress Note: Pt seen and examined. Comfortable AVSS Selected Entries 09/12/18 22:00 Temperature 98.8 F Pulse Rate 76 Respiratory 19 Rate Blood Pressure 116/51 L O2 Sat by Pulse 94 L Oximetry (%) Oxygen Delivery Room Air Method Laboratory Tests 09/11/18 09/11/18 09/12/18 13:20 13:20 06:57 WBC 5.1 Hgb 7.0 L Hct 22.0 L Plt Count 407 ESR 119 H Sodium Potassium Chloride Carbon Dioxide Anion Gap BUN Creatinine Est GFR (CKD-EPI)AfAm Est GFR (CKD-EPI)NonAf Random Glucose Calcium C-Reactive Protein 13.5 H 09/12/18 06:57 WBC Hgb Hct Plt Count ESR Sodium 135 L Potassium 3.5 Chloride 98 Carbon Dioxide 28 Anion Gap 9 BUN 28.0 H Creatinine 1.2 Est GFR (CKD-EPI)AfAm 52.29 Est GFR (CKD-EPI)NonAf 45.11 Random Glucose 85 Calcium 10.0 C-Reactive Protein Gen: NAD RLE: VAC in place, c/d/i. NVID A/P POD#1 s/p I&D R TKA, antibiotic bead placement, incisional wound VAC ID consult appreciated CX pending GS - gram neg bacilli Cont abx Will need PICC line and abx per ID Wound VAC change M/W/F D/C planning to SNF
[2018-09-13] MEDS: oxyCODONE HCL 10 MG SUSTAINED ACTING TABLET PO SCH ×3 (00:35→21:18)
[2018-09-13] MEDS ORDERED: PIPERACILLIN/TAZOBACTAM 3.375 GM VIAL IVPB ONE ×3 (01:17→17:50)
[2018-09-13] MEDS ORDERED: DEXTROSE 5%-WATER - 50 ML IVPB ONE ×3 (01:17→17:50)
[2018-09-13] MEDS: traMADol HCL 50 MG TABLET PO SCH ×4 (01:42→17:54)
[2018-09-13] MEDS: PIPERACILLIN/TAZOB 3.375 GM 3.375 GM in DEXTROSE 5%-WATER - 50 ML IVPB SCH ×3 (03:00→17:54)
[2018-09-13] MEDS: VANCOMYCIN 1 GRAM (PRE-DOCKED) 1,000 MG/250 ML BAG IVPB SCH ×2 (03:05→15:30)
[2018-09-13] MEDS: AMINO ACIDS/PROTEIN HYDROLYS 30 ML LIQUID.PKT PO SCH ×2 (08:12→17:53)
[2018-09-13 08:22] LABS: CALCIUM 10.6 mg/dl (8.5-10); HEMATOCRIT 23.4 % (32.4-45.2); HEMOGLOBIN 7.5 GM/dl (10.7-15.3); MCH 26.6 pg (25.7-33.7); MCHC 32.1 g/dl (32.0-36.0); MEAN CELL VOLUME 82.9 fl (80-96); MEAN PLT VOLUME 8.1 fl (7.5-11.1); PLATELET COUNT 445 K/MM3 (134-434); POTASSIUM 3.3 mmol/L (3.5-5.1); RBC 2.82 M/mm3 (3.60-5.2); RDW 15.1 % (11.6-15.6); WHITE BLOOD COUNT 9.8 K/mm3 (4.0-10.8)
[2018-09-13 08:27] LABS: ALBUMIN 2.5 g/dl (3.4-5.0); BILIRUBIN,TOTAL 0.5 mg/dl (0.2-1); TOT PROT 6.6 g/dl (6.4-8.2)
[2018-09-13] MEDS ORDERED: PT OWN MED DRAWER 7, Y5N ONE (09:30)
[2018-09-13] MEDS: VITAMIN B COMPLEX W/C COMBO TABLET (FP) PO SCH (10:10)
[2018-09-13] MEDS: CHOLECALCIFEROL (VIT D3) 1,000 UNIT (25 MCG) TABLET PO SCH (10:10)
[2018-09-13] MEDS: ATENOLOL 50 MG TABLET (FP) PO SCH (10:10)
[2018-09-13] MEDS: GABAPENTIN 300 MG CAPSULE (FP) PO SCH ×2 (10:11→21:18)
[2018-09-13] MEDS: ESCITALOPRAM OXALATE 10 MG TABLET (FP) PO SCH (10:11)
[2018-09-13] MEDS: APIXABAN 2.5 MG TABLET PO SCH ×2 (10:11→21:18)
[2018-09-13] MEDS: PANTOPRAZOLE 40 MG TABLET (FP) PO SCH (10:11)
[2018-09-13] MEDS: ASCORBIC ACID 500 MG TABLET (FP) PO SCH ×2 (10:11→21:18)
[2018-09-13] MEDS: MULTIVITAMINS (DAILY MVI) TABLET (FP) PO SCH (10:11)
[2018-09-13] MEDS: SENNOSIDES/DOCUSATE COMBO (SENNA PLUS) TABLET (UD) PO SCH ×2 (10:11→21:17)
[2018-09-13] MEDS: FERROUS SO4 325 MG TABLET (FP) PO SCH ×2 (10:11→21:18)
[2018-09-13] MEDS: CHLORTHALIDONE 25 MG TABLET PO SCH (10:12)
[2018-09-13] MEDS: LACTATED RINGERS SOLUTION 1,000 ML IV SCH (17:54)
[2018-09-14] MEDS ORDERED: PIPERACILLIN/TAZOBACTAM 3.375 GM VIAL IVPB ONE ×2 (00:34→08:33)
[2018-09-14] MEDS ORDERED: DEXTROSE 5%-WATER - 50 ML IVPB ONE ×2 (00:35→08:34)
[2018-09-14] MEDS: traMADol HCL 50 MG TABLET PO SCH ×3 (00:39→12:15)
[2018-09-14] MEDS: PIPERACILLIN/TAZOB 3.375 GM 3.375 GM in DEXTROSE 5%-WATER - 50 ML IVPB SCH (01:05)
[2018-09-14] MEDS: VANCOMYCIN 1 GRAM (PRE-DOCKED) 1,000 MG/250 ML BAG IVPB SCH (04:00)
[2018-09-14 07:44] LABS: HEMATOCRIT 22.4 % (32.4-45.2); HEMOGLOBIN 7.2 GM/dl (10.7-15.3); MCH 26.7 pg (25.7-33.7); MEAN CELL VOLUME 83.3 fl (80-96); MEAN PLT VOLUME 7.9 fl (7.5-11.1); PLATELET COUNT 413 K/MM3 (134-434); RBC 2.69 M/mm3 (3.60-5.2); RDW 15.1 % (11.6-15.6); WHITE BLOOD COUNT 8.9 K/mm3 (4.0-10.8)
[2018-09-14] MEDS: AMINO ACIDS/PROTEIN HYDROLYS 30 ML LIQUID.PKT PO SCH ×2 (08:00→17:08)
[2018-09-14 08:04] LABS: CALCIUM 10.9 mg/dl (8.5-10); CREATININE 0.9 mg/dl (0.55-1.3); POTASSIUM 3.1 mmol/L (3.5-5.1)
--- NOTE | 2018-09-14 09:55 | PN ---
Progress Note, Physician History of Present Illness: AWAKE, ALERT AMBULATORY W/O PAIN NO FEVER/ CHILLS BC (-) WOUND C/S POLYMICROBIA; PSEUDOMONAS/ MORGANELLA/ PROTEUS - Current Medication List Current Medications: Active Medications Al Hydroxide/Mg Hydroxide (Mylanta Oral Suspension -) 30 ml PO Q4H PRN PRN Reason: DYSPEPSIA Amino Acids (Prosource No Carb Liquid Pkt) 30 ml PO BID@0800,1730 [facility] Last Admin: 09/13/18 17:53 Dose: 30 ml Apixaban (Eliquis -) 2.5 mg PO BID [facility] Last Admin: 09/13/18 21:18 Dose: 2.5 mg Ascorbic Acid (Vitamin C -) 500 mg PO BID [facility] Last Admin: 09/13/18 21:18 Dose: 500 mg Atenolol (Tenormin -) 50 mg PO DAILY [facility] Last Admin: 09/13/18 10:10 Dose: 50 mg Chlorthalidone (Hygroton -) 25 mg PO DAILY [facility] Last Admin: 09/13/18 10:12 Dose: 25 mg Cholecalciferol (Vitamin D3 -) 1,000 unit PO DAILY [facility] Last Admin: 09/13/18 10:10 Dose: 1,000 unit Escitalopram Oxalate (Lexapro -) 10 mg PO DAILY [facility] Last Admin: 09/13/18 10:11 Dose: 10 mg Ferrous Sulfate (Feosol -) 325 mg PO BID [facility] Last Admin: 09/13/18 21:18 Dose: 325 mg Gabapentin (Neurontin -) 300 mg PO BID [facility] Stop: 09/14/18 21:59 Last Admin: 09/13/18 21:18 Dose: 300 mg Lactated Ringer's (Lactated Ringers Solution) 1,000 mls @ 75 mls/hr IV ASDIR [facility] Last Admin: 09/13/18 17:54 Dose: Not Given Magnesium Hydroxide (Milk Of Magnesia -) 30 ml PO PRN PRN PRN Reason: CONSTIPATION Multivitamins (Total B With C -) 1 each PO DAILY [facility] Last Admin: 09/13/18 10:10 Dose: 1 each Multivitamins/Minerals/Vitamin C (Tab-A-Vit -) 1 tab PO DAILY [facility] Last Admin: 09/13/18 10:11 Dose: 1 tab Ondansetron HCl (Zofran Injection) 4 mg IVPUSH Q6H PRN PRN Reason: NAUSEA Oxycodone HCl (Roxicodone -) 10 mg PO Q3H PRN PRN Reason: PAIN LEVEL 6-10 Oxycodone HCl (Roxicodone -) 5 mg PO Q3H PRN PRN Reason: PAIN LEVEL 1-5 Stop: 09/15/18 22:40 Oxycodone HCl (Oxycontin -) 10 mg PO BID [facility] Last Admin: 09/13/18 21:18 Dose: 10 mg Pantoprazole Sodium (Protonix -) 40 mg PO DAILY [facility] Last Admin: 09/13/18 10:11 Dose: 40 mg Senna/Docusate Sodium (Pericolace -) 2 tablet PO BID [facility] Last Admin: 09/13/18 21:17 Dose: Not Given Tramadol HCl (Ultram -) 50 mg PO Q6H [facility] Last Admin: 09/14/18 06:24 Dose: 50 mg - Objective Vital Signs: Vital Signs Temperature 98.1 F 09/14/18 06:00 Pulse Rate 86 09/14/18 06:00 Respiratory Rate 18 09/14/18 06:00 Blood Pressure 119/48 L 09/14/18 06:00 O2 Sat by Pulse Oximetry (%) 95 09/14/18 06:00 Constitutional: Yes: No Distress Eyes: Yes: Conjunctiva Clear Cardiovascular: Yes: Regular Rate and Rhythm, S1, S2 Respiratory: Yes: CTA Bilaterally Gastrointestinal: Yes: Normal Bowel Sounds, Soft. No: Tenderness Extremities: Yes: Other (VAC IN PLACE R KNEE; SL SWELLING/ WARMTH/ NO ERYTHEMA) Labs: CBC, BMP 09/14/18 06:49 09/14/18 06:49 Assessment/Plan S/P I&D INFECTED R TKR- POLYMICROBIAL WILL NEED PICC/ CARE HOME ANTIBIOTIC TX SUBSTITUTE CEFTAZIDIME 2GM Q8H X 6W MONITOR WEEKLY ESR/ CRP PT TO FOLLOW UP IN OFFICE 2W
[2018-09-14] MEDS ORDERED: CEFTAZIDIME PENTAHYDRATE 2 GM in DEXTROSE 5%-WATER - 100 ML IVPB SCH (10:00)
[2018-09-14] MEDS: VITAMIN B COMPLEX W/C COMBO TABLET (FP) PO SCH (10:05)
[2018-09-14] MEDS: CHOLECALCIFEROL (VIT D3) 1,000 UNIT (25 MCG) TABLET PO SCH (10:10)
[2018-09-14] MEDS: APIXABAN 2.5 MG TABLET PO SCH ×2 (10:33→21:34)
[2018-09-14] MEDS: FERROUS SO4 325 MG TABLET (FP) PO SCH ×2 (10:33→21:34)
[2018-09-14] MEDS: SENNOSIDES/DOCUSATE COMBO (SENNA PLUS) TABLET (UD) PO SCH ×2 (10:36→21:33)
[2018-09-14] MEDS: PANTOPRAZOLE 40 MG TABLET (FP) PO SCH (10:37)
[2018-09-14] MEDS: ATENOLOL 50 MG TABLET (FP) PO SCH (10:37)
[2018-09-14] MEDS: MULTIVITAMINS (DAILY MVI) TABLET (FP) PO SCH (10:37)
[2018-09-14] MEDS: ASCORBIC ACID 500 MG TABLET (FP) PO SCH ×2 (10:38→22:50)
[2018-09-14] MEDS: ESCITALOPRAM OXALATE 10 MG TABLET (FP) PO SCH (12:34)
[2018-09-14] MEDS: CHLORTHALIDONE 25 MG TABLET PO SCH (12:34)
[2018-09-14] MEDS: GABAPENTIN 300 MG CAPSULE (FP) PO SCH (12:35)
[2018-09-14] MEDS: oxyCODONE HCL 10 MG SUSTAINED ACTING TABLET PO SCH ×2 (12:35→21:34)
--- NOTE | 2018-09-14 12:36 | PN ---
Progress Note (short form) - Note Progress Note: Pt seen and examined. Comfortable. Ambulates without difficulty in brace with walker. PICC line and d/c to SNF today. AVSS Selected Entries 09/14/18 06:00 Temperature 98.1 F Respiratory 18 Rate Blood Pressure 119/48 L O2 Sat by Pulse 95 Oximetry (%) Oxygen Delivery Room Air Method Laboratory Tests 09/13/18 09/13/18 09/13/18 07:00 07:00 07:00 WBC 9.8 Hgb 7.5 L Hct 23.4 L Plt Count 445 H Sodium 134 L Potassium 3.3 L Chloride 99 Carbon Dioxide 27 Anion Gap 8 BUN 25.0 H Creatinine 1.0 Random Glucose 113 H Total Protein 6.6 Albumin 2.5 L Prealbumin 11.0 L 09/14/18 09/14/18 06:49 06:49 WBC 8.9 Hgb 7.2 L Hct 22.4 L Plt Count 413 Sodium 136 Potassium 3.1 L Chloride 98 Carbon Dioxide 30 Anion Gap 8 BUN 18.0 Creatinine 0.9 Random Glucose 92 Total Protein Albumin Prealbumin Gen: NAD RLE: VAC in place, c/d/i. NVID A/P 73yo female s/p I&D R TKA, antibiotic bead placement, incisional wound VAC ID consult appreciated PICC line and abx per ID INCISIONAL Wound VAC changed today - incisional VAC should be changed Tuesday and - see discharge instructions LABS: Check CBC q3 days in SNF. Currently H/H 09/18 but not showing clinical signs of symptomatic anemia so no blood transfusion - continue to monitor. Check ESR/CRP and fax results to Dr. Richards and to my office [phone] (fax) F/U with me in office in 2 weeks, on TuesdaySeptember 29 @ 12:30pm F/U with Dr. Richards (Infectious disease doctor) in 2 weeks as well - call for appt [phone] D/C to SNF today after PICC line inserted.
--- NOTE | 2018-09-14 13:05 | DS ---
Physical Examination Vital Signs: Vital Signs Temperature 98.1 F 09/14/18 06:00 Pulse Rate 86 09/14/18 06:00 Respiratory Rate 18 09/14/18 06:00 Blood Pressure 119/48 L 09/14/18 06:00 O2 Sat by Pulse Oximetry (%) 95 09/14/18 06:00 Labs: CBC, BMP 09/14/18 06:49 09/14/18 06:49 Discharge Summary Reason For Visit: DISRUPTION OF INTERNAL OPERATION SURGICAL WOUND Current Active Problems Infection of total right knee replacement (Acute) Procedures: Principal: I&D R TKA, polyethylene exchange, antibiotic bead placement, incisional wound VAC placement Hospital Course: 73 year old female status post a right total knee arthroplasty, MAKOplasty on . Initially, she did well with the surgery until 1 month later when she twisted the knee and wound dehisced. She was then re-admitted on 08/13/2018, where incision and drainage with polyethylene exchange took place. Pt was discharged to SNF and then had no issues for another month, until she presented to the office with drainage from her incision x 2-3 days. Admitted for surgery after seen in office with purulent wound drainage. Underwent repeat I&D R TKA, polyethylene exchange, antibiotic bead placement, incisional wound VAC placement. Pt received postoperative antibiotic prophylaxis and DVT ppx. Cultures sent intraoperatively and reviewed by Dr. Richards from [place] who gave long- term IV abx recommendation. Pt received PICC line and was discharged to SNF with outpatient followup. Condition: Stable - Instructions Diet, Activity, Other Instructions: Dr. Hopson - Knee Replacement Instructions PICC line and abx per Dr. Richards (infectious disease specialist). CEFTAZIDIME 2GM Q8H X 6W INCISIONAL Wound VAC changed today 09/14/18 - incisional VAC should be changed twice a week, Mondays and . Must apply plastic to unaffected skin first before applying foam - leave a window around the incision itself so that VAC foam is not in direct contact with intact skin - foam should only be in contact with the incision. Placing VAC foam on incision without covering surrounding unaffected skin with plastic first will lead to maceration of skin. Google "incisional VAC technique" for more detailed instructions. FOR VAC INSURANCE PAPERWORK - WOUND SIZE IS 19cm x 2cm LABS: Check CBC q3 days in SNF. Currently H/H 09/18 but not showing clinical signs of symptomatic anemia so no blood transfusion - continue to monitor. DO NOT TRANSFUSE unless showing clinical signs of symptomatic anemia - i.e. tachycardia, lightheadedness, hypotension, etc. LABS: Check ESR/CRP weekly and fax results to Dr. Richards and to my office (fax) F/U with me in office in 2 weeks, on TuesdaySeptember 29 @ 12:30pm. [facility] office [phone] (phone) F/U with Dr. Richards (Infectious disease doctor) in 2 weeks as well - call for appt [phone] Take Eliquis 2.5mg BID for 6 weeks to prevent DVT. Take Pantoprazole 40mg daily for 6 weeks to protect against heartburn and ulcers. Take a multivitamin, stool softener, iron supplement, and extra Vitamin C supplement daily. Dietary evaluation showed evidence of protein malnutrition - which can lead to poor wound healing and difficulty clearing the infection. Continue dietary protein supplement with meals as recommended by the retrieval specialist. Can also add high protein Ensure TID as a snack in between meals. For pain: *Mild pain (1-3/10): Take 1 Tramadol tablet every 4 hours as needed. Moderate pain (4-6/10): Take 1 Tramadol tablet and 1 Percocet tablet every 4 hours as needed. Severe pain (7-10/10): Take 1 Tramadol tablet and 2 Percocet tablets every 4 hours as needed. Activity: Weight bearing as tolerated with brace on at all times. Always use a walker for balance and to prevent falls. Do not bend knee until cleared by Dr. Hopson. Brace will remain in place to keep knee in extension to minimize tension on incision until the skin has fully healed. Can loosen brace when in bed to place ice pack over knee and to place SCD on right lower leg. Brace must be tightened/secured before getting out of bed and/ or weightbearing Sutures will be removed in office by Dr. Hopson on TuesdaySeptember 29. VAC will remain in place after suture removal until all gaps in incision have closed and there is no drainage. Expect to see swelling/bruising from the operative site all the way down to the foot. Disposition: GROUP HOME FACILITY - Home Medications Comprehensive Discharge Medication List: Ambulatory Orders Atenolol/Chlorthalidone [Atenolol-Chlorthalidone 50-25] 1 each PO DAILY Cholecalciferol (Vitamin D3) [Vitamin D3] 1,000 unit PO DAILY 06/30/18 Escitalopram Oxalate [Lexapro -] 10 mg PO DAILY 06/30/18 Vitamin B Complex 1 each PO DAILY 06/30/18 Ascorbic Acid [Vitamin C -] 500 mg PO BID tablet 07/15/18 Oxycodone HCl/Acetaminophen [Percocet 5-325 mg Tablet] 1 - 2 tab PO Q4H PRN #60 tablet MDD 10 07/15/18 Sennosides/Docusate Sodium [Pericolace -] 2 tablet PO BID tablet 07/15/18 Amino Acids/Protein Hydrolys [Prosource No Carb Liquid Pkt] 30 ml PO BID@0800, 1730 packet 08/16/18 Apixaban [Eliquis -] 2.5 mg PO BID tablet 08/16/18 Multivitamins [Multivit ([facility] Formul[facility])] 1 tab PO DAILY tab 08/16/18 Ceftazidime Pentahydrate [Fortaz (Restricted To Id) -] 2 gm IVPB Q8H-IV vial Ferrous Sulfate [Feosol] 325 mg PO BID ud 09/14/18 Pantoprazole Sodium [Protonix -] 40 mg PO DAILY tablet.ec 09/14/18 traMADol HCL [Ultram -] 50 mg PO Q4H PRN #60 tablet MDD 6 09/14/18
--- NOTE | 2018-09-14 14:32 | PATH ---
Surgical Pathology Report Patient Name: NADYA SALINAS Med. Rec. #: [id number] /Age/Gender: 1945 (Age: 73) / F Account: [id number] Location: [facility] Taken: 09/11/2018 Received: 09/11/2018 Reported: 09/14/2018 Physicians: Cosmo Hopson M.D. Specimen(s) Received RIGHT KNEE EXPLANT Clinical History Infected right total knee replacement Final Diagnosis RIGHT KNEE, EXPLANT: HARDWARE, DESCRIBED (GROSS EXAMINATION ONLY). Electronically Signed Brittany Hess M.D. Gross Description Received fresh labeled "right knee explant," are 3 white, plastic portions of hardware ranging from 0.9-6.3 cm in greatest dimension, consistent with a knee explant. Also received is in the same container is a 4.5 cm in length fournier metallic screw as well as a 4.5 cm in length fournier metallic wire. No soft tissue is present. No sections are submitted, gross only. /09/12/2018 saudi09/12/2018
[2018-09-14] MEDS ORDERED: DEXTROSE 5%-WATER 100 ML IVPB ONE (16:51)
[2018-09-14] MEDS ORDERED: cefTAZidime PENTAHYDRATE 2 GM VIAL (RESTRICTED TO ID) ONE (16:51)
[2018-09-14] MEDS: CEFTAZIDIME PENTAHYDRATE 2 GM in DEXTROSE 5%-WATER 100 ML IVPB SCH (17:09)
[2018-09-15] MEDS: traMADol HCL 50 MG TABLET PO SCH ×2 (00:55→05:50)
[2018-09-15] MEDS: CEFTAZIDIME PENTAHYDRATE 2 GM in DEXTROSE 5%-WATER 100 ML IVPB SCH ×2 (02:00→09:35)
[2018-09-15] MEDS ORDERED: DEXTROSE 5%-WATER 100 ML IVPB ONE ×2 (03:05→09:13)
[2018-09-15] MEDS ORDERED: cefTAZidime PENTAHYDRATE 2 GM VIAL (RESTRICTED TO ID) ONE ×2 (03:06→09:13)
[2018-09-15] MEDS: oxyCODONE HCL 5 MG TABLET PO PRN ×2 (05:49→09:33)
[2018-09-15 06:11] VITALS: BP 119/49; PULSE 85; TEMP 98.6
[2018-09-15 07:30] LABS: HEMATOCRIT 22.7 % (32.4-45.2); HEMOGLOBIN 7.5 GM/dl (10.7-15.3); MCH 27.1 pg (25.7-33.7); MEAN CELL VOLUME 82.4 fl (80-96); PLATELET COUNT 469 K/MM3 (134-434); RBC 2.75 M/mm3 (3.60-5.2); RDW 14.9 % (11.6-15.6); WHITE BLOOD COUNT 7.1 K/mm3 (4.0-10.8)
[2018-09-15] MEDS: AMINO ACIDS/PROTEIN HYDROLYS 30 ML LIQUID.PKT PO SCH (08:05)
[2018-09-15 08:07] LABS: CALCIUM 11.7 mg/dl (8.5-10); CREATININE 0.9 mg/dl (0.55-1.3); POTASSIUM 3.5 mmol/L (3.5-5.1)
[2018-09-15] MEDS: CHLORTHALIDONE 25 MG TABLET PO SCH (09:30)
[2018-09-15] MEDS: APIXABAN 2.5 MG TABLET PO SCH (09:30)
[2018-09-15] MEDS: FERROUS SO4 325 MG TABLET (FP) PO SCH (09:30)
[2018-09-15] MEDS: oxyCODONE HCL 10 MG SUSTAINED ACTING TABLET PO SCH (09:31)
[2018-09-15] MEDS: ESCITALOPRAM OXALATE 10 MG TABLET (FP) PO SCH (09:31)
[2018-09-15] MEDS: PANTOPRAZOLE 40 MG TABLET (FP) PO SCH (09:32)
[2018-09-15] MEDS: SENNOSIDES/DOCUSATE COMBO (SENNA PLUS) TABLET (UD) PO SCH (09:32)
[2018-09-15] MEDS: VITAMIN B COMPLEX W/C COMBO TABLET (FP) PO SCH (09:34)
[2018-09-15] MEDS: ASCORBIC ACID 500 MG TABLET (FP) PO SCH (09:34)
[2018-09-15] MEDS: CHOLECALCIFEROL (VIT D3) 1,000 UNIT (25 MCG) TABLET PO SCH (09:34)
[2018-09-15] MEDS: ATENOLOL 50 MG TABLET (FP) PO SCH (09:34)
[2018-09-15] MEDS: MULTIVITAMINS (DAILY MVI) TABLET (FP) PO SCH (09:34)
== END 2018-09-15 10:48 | DRG 467 ==
LOC: FM/S 11:26
PROVIDERS: ADMIT Student in an Organized Health Care Education/Training Program; ATTEND Student in an Organized Health Care Education/Training Program
PROC: 0SPC0JZ Removal of Synthetic Substitute from Right Knee Joint, Open Approach (ICD-10-PCS; 2018-09-11)
PROC: 0SRC0JZ Replacement of Right Knee Joint with Synthetic Substitute, Open Approach (ICD-10-PCS; 2018-09-11)
PROC: 2W1QX6Z Compression of Right Lower Leg using Pressure Dressing (ICD-10-PCS; 2018-09-11)
PROC: 02HV33Z Insertion of Infusion Device into Superior Vena Cava, Percutaneous Approach (ICD-10-PCS; 2018-09-11)
PROC: B518ZZA Fluoroscopy of Superior Vena Cava, Guidance (ICD-10-PCS; 2018-09-11)
PROC: 0J9N0ZX Drainage of Right Lower Leg Subcutaneous Tissue and Fascia, Open Approach, Diagnostic (ICD-10-PCS; principal; 2018-09-11 16:30)
DX: T84.53XA Infection and inflammatory reaction due to internal right knee prosthesis, initial encounter (principal); E46 Unspecified protein-calorie malnutrition; Y83.8 Other surgical procedures as the cause of abnormal reaction of the patient, or of later complication, without mention of misadventure at the time of the procedure; I10 Essential (primary) hypertension; F32.9 Major depressive disorder, single episode, unspecified; D64.9 Anemia, unspecified; B95.4 Other streptococcus as the cause of diseases classified elsewhere; B96.5 Pseudomonas (aeruginosa) (mallei) (pseudomallei) as the cause of diseases classified elsewhere; B96.89 Other specified bacterial agents as the cause of diseases classified elsewhere; Z68.29 Body mass index [BMI] 29.0-29.9, adult
CPT/HCPCS: 36415; 36569; 73560-TC-RT-FY; 77001-TC-FY; 80048; 80076; 84134; 85025; 85027; 85651; 86140; 86850; 86900; 86901; 87040; 87070; 87075; 87076; 87077; 87186; 87205; 88300-TC; 94760; 97116-GP; 97162-GP; C1751; J0131